=== PATIENT | female | born 1985 | race Caucasian/White ===

== ENCOUNTER 2020-10-07 19:15 | Inpatient (IN) | payer OTHER, SELFPAY ==
[2020-10-07 19:57] VITALS: BP 128/81; PULSE 93; RESP 18; TEMP 37.1; O2SAT 98; BMI 30.1
--- NOTE | 2020-10-07 20:01 | ED_ITS ---
HPI - Psych General Stated Complaint: si Time Seen by Provider: 10/07/20 19:45 Source: patient Mode of arrival: ambulatory Limitations: no limitations History of Present Illness HPI Narrative: 35-year-old female with a past medical history of depression, PTSD, anxiety, ADHD, personality disorder here with complaints of suicidal thoughts. No plan. No homicidal thoughts. No hallucinations. Feeling very anxious. Complaining of low back pain with some urinary foul odor. No flank pain, vomiting, fever. Related Data Home Medications Medication Instructions Recorded Confirmed Adderall 40 mg PO DAILY 10/07/20 10/07/20 clonidine 0.2 mg PO BEDTIME 10/07/20 10/07/20 doxepin BEDTIME 10/07/20 gabapentin 800 mg PO TID 10/07/20 10/07/20 lithium carbonate 850 mg PO BID 10/07/20 10/07/20 Allergies Allergy/AdvReac Type Severity Reaction Status Date / Time No Known Allergies Allergy Verified 10/07/20 20:14 Review of Systems Review of Systems: Yes all other systems are reviewed and are negative Constitutional: Constitutional: Reports no additional constitutional complaints, Denies body ache(s), Denies chills, Denies fever(s), Denies headache(s) and Denies weakness Eyes: Eyes: Reports no additional eye complaints and Denies change in vision ENT: Reports system reviewed and no additional complaints, except as documented, Denies dizziness, Denies headache(s), Denies nasal congestion, Denies nasal discharge and Denies neck pain Cardiovascular: Cardiovascular: Reports no additional cardiovascular complaints, Denies chest pain, Denies leg edema and Denies dyspnea Respiratory: Respiratory: Reports no additional respiratory complaints, Denies cough and Denies dyspnea Gastrointestinal: Gastrointestinal: Reports no additional gastrointestinal complaints, Denies abdominal pain, Denies diarrhea, Denies nausea and Denies vomiting Genitourinary: Genitourinary: Reports no additional female genitourinary complaints and Denies urinary incontinence Comments: foul odor urine Musculoskeletal: Musculoskeletal: Reports no additional musculoskeletal complaints, Reports back pain, Denies arthralgias, Denies joint swelling, Denies neck pain, Denies numbness and Denies tingling Integumentary/Breasts: Skin/Breast: Reports system reviewed and no additional complaints, except as docu and Denies rash Neurologic: Reports system reviewed and no additional complaints, except as documented, Denies Abnormal speech present, Denies dizziness, Denies headache(s), Denies numbness, Denies tingling and Denies weakness Psychiatric: Psychiatric: Reports anxiety, Reports depression, Denies homicidal ideation and Reports suicidal ideation [facility] Past Medical History Attestation statement: The following information was validated with the patient. Source: old records reviewed and nursing notes reviewed Medical History (Updated 10/07/20 @ 20:42 by She Brooks NP) ADHD Anxiety Depression Personality disorder PTSD (post-traumatic stress disorder) Social History Social History Patient : No Physical Exam Vital Signs: Vital Signs: Last Vital Signs Temp 98.8 F 10/07/20 19:57 Pulse 93 10/07/20 19:57 Resp 18 10/07/20 19:57 BP 128/81 10/07/20 19:57 Pulse Ox 98 10/07/20 19:57 Body Mass Index 30.1 Const: General: cooperative, healthy appearing, comfortable, no acute distress and anxious Orientation/consciousness: patient oriented x3 Limitations: no limitations HENMT: Head: Yes normal to inspection Ears: hearing grossly normal bilaterally General nose exam: Normal external nose present Face and sinus: Yes normal facial exam Mouth: Normal oral and palatal mucosa present Throat: Yes posterior oropharynx normal Eyes: General: appearance normal, both eyes and all related structures Pupils: Equal, round and reactive pupils present Neck: Neck: Yes normal visual inspection Chest: Chest palpation & inspection: normal inspection of the chest Resp: Effort & Inspection: normal respiratory effort Auscultation: clear to auscultation bilaterally Cardio: Rate: regular rate Rhythm: regular rhythm Peripheral pulses: Peripheral pulses 2+ throughout GI: Inspection: Yes normal to inspection Palpation (GI): Soft to palpation and nontender Auscultation: normal bowel sounds Back/Spine/Pelvis: Thoracic/Lumbar Spine: thoracic and lumbar spine normal to inspection Skin: General skin exam: no rashes or lesions noted Neuro: General: patient oriented x3, no focal motor deficits and normal sensation to monofilament Cranial nerves: Yes Equal, round and reactive pupils present Cognition (Neuro): normal cognition Speech: No Abnormal speech present Gait exam (Neuro): Normal gait present Motor exam (neuro): 5/5 motor strength present throughout Extrem: General: Yes normal to inspection Course Course Course Narrative: 35-year-old female here with suicidal thoughts, increasing anxiety. Will check labs, drug screen, COVID screen, have nursing verify home meds. Once medically cleared will need crisis evaluation 2100-patient has UTI. Started on antibiotics. Medications reconciled. Signed out to night team pending above MDM - Psych Medical Records Attestation: I reviewed the patient's medical records. Lab Data Attestation: I reviewed the patient's lab results. Labs: Lab Results 10/07/20 10/07/20 Range/Units 20:10 Unknown Urine Color YELLOW Urine Appearance HAZY Urine pH 6.0 (5.0-8.0) Ur Specific [place] 1.025 (1.005-1.025) Urine Protein NEG (NEG-TRACE) MG/DL Urine Glucose (UA) NEG (NEG) MG/DL Urine Ketones NEG (NEG) MG/DL Urine Blood TRACE (NEG) Urine Nitrite POS H (NEG) Ur Leukocyte Esterase 3+ H (NEG) Urine RBC 1-4 (0) /HPF Urine WBC 30-49 H (0-4) /HPF Ur Squamous Epith Cells 1+ /LPF Urine Bacteria 2+ /LPF Urine Mucus 1+ /LPF Urine Test NEGATIVE (NEGATIVE) Discharge Plan Discharge Clinical Impression: Depression, Suicidal ideation, UTI (urinary tract infection) Prescriptions: No Action gabapentin 800 mg PO TID RF: 0 lithium carbonate 850 mg PO BID RF: 0 clonidine 0.2 mg PO BEDTIME RF: 0 doxepin BEDTIME RF: 0 Adderall 40 mg PO DAILY RF: 0
[2020-10-07 20:17] LABS: Glucose Urine UA NEG (NEG); Leukocyte Esterase Urine 3+ (NEG); Nitrite Urine POS (NEG); Specific Gravity - Urine 1.025 (1.005-1.025); UACC Culture Trigger YES; Urine Blood TRACE (NEG); Urine Ketones NEG (NEG); Urine Protein NEG (NEG-TRACE)
[2020-10-07 20:18] LABS: Appearance Urine HAZY; Color Urine YELLOW
[2020-10-07 20:21] LABS: UPreg QC Valid YES; Urine Pregnancy NEGATIVE (NEGATIVE)
[2020-10-07 20:23] LABS: Bacteria Urine 2+ /LPF; Mucus Urine 1+ /LPF; Squamous Epithelial Cell Urine 1+ /LPF; WBC Urine 30-49 /HPF (0-4)
[2020-10-07] MEDS: Nicotine 21 MG PATCH.TD24 TRANSDERMA (20:45)
[2020-10-07] MEDS: clonazePAM 1 MG TABLET PO (20:46)
[2020-10-07] MEDS: Nitrofurantoin Monohyd/M-Cryst 100 MG CAPSULE PO (20:46)
[2020-10-07 20:50] LABS: Amphetamine Screen Urine POSITIVE (Not Detect); Barbiturates, Urine Not Detected (Not Detect); Benzodiazepines Screen Urine Not Detected (Not Detect); Cannabinoid Screen Urine Not Detected (Not Detect); Cocaine Screen Urine Not Detected (Not Detect); Opiate Screen Urine Not Detected (Not Detect); Phencyclidine Screen Urine Not Detected (Not Detect)
[2020-10-07 21:02] LABS: MANUAL DIFF FLAG NO
[2020-10-07 21:03] LABS: Basophils Percent Auto 0.4 % (0-2); Eosinophils Absolute Auto 0.3 X10*3/uL (0.0-0.4); Eosinophils Percent Auto 4.5 % (0-4); Hematocrit 34.9 % (37-47); Hemoglobin 11.7 g/dl (12.0-16.0); Imm Gran Abs Auto 0.04 X10*3/uL (0.00-0.03); Imm Gran Pct Auto 0.6 % (0.0-0.4); Lymphocytes Percent Auto 41.9 % (20-40); Mean Corpuscular HGB Conc 33.5 g/dl (31.0-35.0); Mean Corpuscular Hemoglobin 29.4 pg (27.0-33.0); Mean Corpuscular Volume 87.7 fL (80-98); Mean Platelet Volume 9.8 fL (9.4-12.3); Monocytes Absolute Auto 0.6 X10*3/uL (0.1-1.2); Monocytes Percent Auto 7.9 % (2-11); Neutrophils Absolute Auto 3.2 X10*3/uL (2.0-8.3); Neutrophils Percent Auto 44.7 % (45-73); Platelet Count 298 X10*3/uL (160-400); Red Blood Count 3.98 X10*6/uL (4.20-5.50); Red Cell Distribution Width 13.2 % (11.0-16.0); White Blood Count 7.1 X10*3/uL (4.8-10.8)
[2020-10-07 21:04] LABS: Influenza A PCR NEGATIVE (Negative); Influenza B PCR NEGATIVE (Negative); Resp Syncy Virus RNA Qual PCR NEGATIVE (Negative); SARS COV2 PCR INHOUSE NEGATIVE (Negative)
[2020-10-07 21:34] LABS: Ethanol < 10 mg/dL
[2020-10-07 21:37] LABS: Lithium < 0.10 mmol/L (0.60-1.20)
[2020-10-07 21:39] LABS: Alanine Aminotransferase 12 U/L (0-31); Albumin Level 3.9 g/dL (3.5-5.0); Alkaline Phosphatase 99 U/L (39-117); Anion Gap 13 (12-20); Aspartate Amino Transferase 12 U/L (5-31); Bilirubin Direct < 0.2 mg/dL (0.0-0.5); Bilirubin Total < 0.2 mg/dL (0.0-1.0); Blood Urea Nitrogen 7 mg/dL (9-16); Calcium 9.2 mg/dL (8.4-10.2); Carbon Dioxide 26 mmol/L (22-29); Chloride 106 mmol/L (96-108); Creatinine Clr Calc Pharmacy 94.6; Estimated Glomerular Filt Rate > 60; Glucose Random 102 mg/dL (60-115); Salicylate < 5.0 mg/dL (15-30); Sodium 141 mmol/L (135-145); Total Protein 6.6 g/dL (6.5-8.0)
[2020-10-07] MEDS: Gabapentin 400 MG CAPSULE 800 MG PO (21:41)
[2020-10-07 21:44] LABS: Acetaminophen LAB < 1 mcg/mL (<30)
[2020-10-07 22:01] VITALS: BP 124/78; PULSE 78; RESP 16; TEMP 36.5; O2SAT 98
--- NOTE | 2020-10-07 22:44 | PC.NURSE ---
waiting for lithium to be delivered by pharmacy, pyx out.
[2020-10-07] MEDS: Lithium Carbonate 300 MG TABLET 750 MG PO (23:21)
[2020-10-08] VITALS (7 sets, daily range): BP systolic 125–133; BP diastolic 66–83; PULSE 79–95; RESP 15–16; O2SAT 97–98
[2020-10-08] MEDS: hydrOXYzine HCL 50 MG TABLET PO (05:54)
--- NOTE | 2020-10-08 06:34 | PC.NURSE ---
PT SLEEPING MEDICATION EFFECTIVE FOR THE PT. PT WAITING TO BE SEEN BY [facility]. LOCKE PRESENT.
[2020-10-08] MEDS: Gabapentin 400 MG CAPSULE 800 MG PO ×3 (08:34→22:43)
[2020-10-08] MEDS: Nitrofurantoin Monohyd/M-Cryst 100 MG CAPSULE PO ×2 (08:34→22:43)
[2020-10-08] MEDS: clonazePAM 1 MG TABLET 2 MG PO ×2 (08:34→22:44)
--- NOTE | 2020-10-08 08:37 | PC.NURSE ---
[facility] sent to [facility]
--- NOTE | 2020-10-08 08:38 | PC.NURSE ---
Pharmacy called for medications not loaded in pxysis
[2020-10-08] MEDS: LORazepam 1 MG TABLET 2 MG PO ×2 (10:31→17:20)
[2020-10-08] MEDS: Lithium Carbonate 300 MG TABLET 750 MG PO ×2 (10:31→22:48)
[2020-10-08] MEDS: Nicotine 21 MG PATCH.TD24 TRANSDERMA (11:39)
[2020-10-08] MEDS: ALPRAZolam 0.5 MG TABLET PO (19:19)
[2020-10-08] MEDS: cloNIDine HCL 0.2 MG TABLET PO (22:43)
[2020-10-08] MEDS: Doxepin HCl 25 MG CAPSULE 150 MG PO (22:48)
[2020-10-08] MEDS: OLANZapine 10 MG VIAL IM (23:36)
--- NOTE | 2020-10-08 23:43 | PC.NURSE ---
Patient was found yelling and screaming, demanding more medication, refused to hand it over the hoody, patient was redirected/educated with POD policy eventually agreed and gave us her hoody, patient's behavior had been psychotically escalating, attempted to cut her wrist with pencil, items removed from the room, provider notified/ordered Olanzapine 10 mg IM, administered as ordered/patient compliant, patient is currently being observed on 1:1 for safety. will continue to monitor.
[2020-10-09] VITALS: RESP 14
[2020-10-09 00:15] VITALS: RESP 13
[2020-10-09 00:30] VITALS: RESP 14
--- NOTE | 2020-10-09 06:45 | PC.NURSE ---
Patient is s/p chemical restraint for the escalating behavior @ 2330, patient slept through the night, OOR x 2 for bathroom use and for snack, patient seems to be present medication seeking behavior, patient currently sleeping, no distress observed/reported, disposition is section 12 bed search, patient is positive for UTI being treated with Macrobid, will continue to monitor.
--- NOTE | 2020-10-09 07:10 | PC.NURSE ---
patient appeared to remain at rest upon begin of shift and now awake, asking for many food items, extra oatmeal
[2020-10-09] MEDS: Nicotine 21 MG PATCH.TD24 TRANSDERMA (08:22)
[2020-10-09] MEDS: Gabapentin 400 MG CAPSULE 800 MG PO (08:23)
[2020-10-09] MEDS: Nitrofurantoin Monohyd/M-Cryst 100 MG CAPSULE PO ×2 (08:23→22:00)
[2020-10-09] MEDS: clonazePAM 1 MG TABLET 2 MG PO (08:23)
[2020-10-09] MEDS: Lithium Carbonate 300 MG TABLET 750 MG PO ×2 (08:24→22:00)
--- NOTE | 2020-10-09 08:41 | PC.NURSE ---
made third attempt to verify last dose for MMTP, left voice mail
[2020-10-09 08:45] VITALS: BP 108/64; PULSE 88; RESP 14; TEMP 36.8; O2SAT 97
--- NOTE | 2020-10-09 08:49 | HE.PHANOTE ---
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
[2020-10-09] MEDS: LORazepam 1 MG TABLET 2 MG PO ×3 (09:14→14:02)
--- NOTE | 2020-10-09 09:15 | PC.NURSE ---
patient escalating slamming door disruptive to unit, expresses displeasure about rules of unit demanding personal items from closet
--- NOTE | 2020-10-09 09:22 | PC.NURSE ---
5th call to verify methadone dose. patient has stopped acting out for the moment.
[2020-10-09] MEDS: OLANZapine 10 MG TABLET PO ×2 (09:29→22:00)
[2020-10-09] MEDS: HaloperidoL 5 MG TABLET PO (12:53)
--- NOTE | 2020-10-09 18:18 | PC.NURSE ---
client had been restrained today and therefore will not be accepted by [facility] today-will reassess tomrrow. notified jenn and angella iglesias
[2020-10-09] MEDS: Doxepin HCl 25 MG CAPSULE 150 MG PO (23:45)
[2020-10-10] MEDS: Nicotine 21 MG PATCH.TD24 TRANSDERMA (05:04)
[2020-10-10 05:05] VITALS: BP 105/76; PULSE 97; RESP 16; TEMP 36.6; O2SAT 96
--- NOTE | 2020-10-10 05:29 | PC.NURSE ---
Patient slept through the night, no distress observed/reported, out of room x 3 for bathroom use and back, patient did exhibit release behavior at 0515, demanding immediate discharge, provider notified/ordered Olanzapine 10 mg because PRN order is to soon to administer, however, went back to bed soon, therefore Olanzapine was not administered, VSS, appetite good, medication compliant, disposition continues to be same, section 12 inpatient bed search, will continue to monitor.
--- NOTE | 2020-10-10 07:33 | PC.NURSE ---
patient appears to remain at rest this am respirations are even and unlabored, patient appears in no distress.
[2020-10-10] MEDS: Gabapentin 400 MG CAPSULE 800 MG PO ×3 (08:16→20:52)
[2020-10-10] MEDS: OLANZapine 10 MG TABLET PO (08:16)
[2020-10-10] MEDS: clonazePAM 1 MG TABLET 2 MG PO (08:16)
[2020-10-10] MEDS: Lithium Carbonate 300 MG TABLET 750 MG PO ×2 (08:17→21:11)
[2020-10-10] MEDS: Nitrofurantoin Monohyd/M-Cryst 100 MG CAPSULE PO ×2 (08:17→21:12)
[2020-10-10] MEDS: LORazepam 1 MG TABLET 2 MG PO (10:04)
--- NOTE | 2020-10-10 10:39 | PC.NURSE ---
verified methadone with [facility] that [facility] last dose was 135mg [facility] bottle ([facility]) her extension 136 [phone]
[2020-10-10] MEDS: Haloperidol Lactate 5 MG/ML VIAL IM (11:31)
[2020-10-10] MEDS: LORazepam 2 MG/ML VIAL IM (11:31)
[2020-10-10 18:00] VITALS: BP 106/69; PULSE 88; RESP 18; TEMP 36.7; O2SAT 94
[2020-10-10 20:51] VITALS: BP 118/78; PULSE 98
[2020-10-10] MEDS: Doxepin HCl 25 MG CAPSULE 150 MG PO (21:10)
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
[2020-10-11 06:00] VITALS: PULSE 79; RESP 18; TEMP 35.7; O2SAT 97
[2020-10-11 08:22] LABS: MANUAL DIFF FLAG NO
[2020-10-11] MEDS: Lithium Carbonate 300 MG TABLET 750 MG PO ×2 (08:36→20:25)
[2020-10-11] MEDS: clonazePAM 1 MG TABLET 2 MG PO ×2 (08:37→20:24)
[2020-10-11] MEDS: Nitrofurantoin Monohyd/M-Cryst 100 MG CAPSULE PO ×2 (08:37→20:24)
[2020-10-11 08:40] LABS: Basophils Percent Auto 0.4 % (0-2); Eosinophils Absolute Auto 0.4 X10*3/uL (0.0-0.4); Eosinophils Percent Auto 3.5 % (0-4); Hematocrit 39.3 % (37-47); Imm Gran Abs Auto 0.07 X10*3/uL (0.00-0.03); Imm Gran Pct Auto 0.7 % (0.0-0.4); Lymphocytes Absolute Auto 2.2 X10*3/uL (1.2-4.9); Lymphocytes Percent Auto 21.4 % (20-40); Mean Corpuscular HGB Conc 33.1 g/dl (31.0-35.0); Mean Corpuscular Hemoglobin 28.8 pg (27.0-33.0); Mean Corpuscular Volume 87.1 fL (80-98); Mean Platelet Volume 9.6 fL (9.4-12.3); Monocytes Absolute Auto 0.8 X10*3/uL (0.1-1.2); Monocytes Percent Auto 7.2 % (2-11); Neutrophils Percent Auto 66.8 % (45-73); Platelet Count 330 X10*3/uL (160-400); Red Blood Count 4.51 X10*6/uL (4.20-5.50); Red Cell Distribution Width 12.7 % (11.0-16.0); White Blood Count 10.4 X10*3/uL (4.8-10.8)
[2020-10-11 09:09] LABS: Alanine Aminotransferase 80 U/L (0-31); Albumin Level 4.5 g/dL (3.5-5.0); Alkaline Phosphatase 109 U/L (39-117); Anion Gap 13 (12-20); Aspartate Amino Transferase 80 U/L (5-31); Bilirubin Direct < 0.2 mg/dL (0.0-0.5); Bilirubin Total 0.4 mg/dL (0.0-1.0); Blood Urea Nitrogen 10 mg/dL (9-16); Calcium 9.9 mg/dL (8.4-10.2); Carbon Dioxide 26 mmol/L (22-29); Chloride 104 mmol/L (96-108); Creatinine Clr Calc Pharmacy 97.1; Estimated Glomerular Filt Rate > 60; Glucose Fasting 114 mg/dL (60-99); Potassium 4.4 mmol/L (3.3-5.1); Sodium 139 mmol/L (135-145); Total Protein 7.4 g/dL (6.5-8.0)
[2020-10-11] MEDS: Gabapentin 400 MG CAPSULE 800 MG PO ×2 (15:18→20:24)
[2020-10-11] MEDS: OLANZapine 10 MG TABLET PO (16:32)
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
[2020-10-11 17:17] VITALS: BP 136/87; PULSE 109; RESP 18; TEMP 36.3; O2SAT 97
[2020-10-11] MEDS: Nicotine 21 MG PATCH.TD24 TRANSDERMA (18:05)
[2020-10-11 20:24] VITALS: BP 137/84; PULSE 97
[2020-10-11] MEDS: Doxepin HCl 25 MG CAPSULE 150 MG PO (20:24)
[2020-10-11] MEDS: cloNIDine HCL 0.2 MG TABLET PO (20:24)
[2020-10-12 06:00] VITALS: BP 116/78; PULSE 88; RESP 14; TEMP 36.7; O2SAT 96
[2020-10-12 08:36] LABS: Estimated Average Glucose 100 mg/dL; Hemoglobin A1c % 5.1 %
[2020-10-12 08:58] LABS: Cholesterol 182 mg/dL; HDL Cholesterol 31 mg/dL; LDL Cholesterol Calculated 74 mg/dl; Triglycerides 389 mg/dL
[2020-10-12 09:19] LABS: Thyroid Stimulating Hormone 2.67 uIU/mL (0.32-4.0)
[2020-10-12] MEDS: clonazePAM 1 MG TABLET 2 MG PO (09:24)
[2020-10-12] MEDS: Gabapentin 400 MG CAPSULE 800 MG PO ×2 (09:24→14:58)
[2020-10-12] MEDS: Lithium Carbonate 300 MG TABLET 750 MG PO (09:26)
[2020-10-12] MEDS: Nitrofurantoin Monohyd/M-Cryst 100 MG CAPSULE PO (09:31)
--- NOTE | 2020-10-12 10:00 | ECG_ITS ---
Test Reason : STIMULANT USE Blood Pressure : / mmHG Vent. Rate : 089 BPM Atrial Rate : 089 BPM P-R Int : 194 ms QRS Dur : 086 ms QT Int : 346 ms P-R-T Axes : 048 023 042 degrees QTc Int : 420 ms Normal sinus rhythm Nonspecific T wave abnormality Abnormal ECG No previous ECGs available Referred By: Elmira Lozada Electronically Signed By:SUMAYA AGUIRRE MD
--- NOTE | 2020-10-12 13:17 | P.CONIM_ITS ---
History of Present Illness Data of Consult Service Date: 10/12/20 <Yuli Bledsoe NP - Last Filed: 10/12/20 14:02> Requesting physician: Elmira Lozada <Yuli Bledsoe NP - Last Filed: 10/12/20 14:02> Primary Care Provider: None Physician <Yuli Bledsoe NP - Last Filed: 10/12/20 14:02> HPI Reason for consult: medical consultation <Yuli Bledsoe NP - Last Filed: 10/12/20 14:02> 35-year-old woman with history of bipolar disorder, depression, recent urinary tract infection admitted to [facility]. Patient has no complaints of chest pain, shortness of breath, nausea, vomiting, diarrhea, urinary urgency frequency or dysuria. She has no acute medical complaints at this time her vital signs are stable, recent labs within acceptable limits. <Yuli Bledsoe NP - Last Filed: 10/12/20 14:02> Review of Systems Review of Systems: Denies any recent fever chills or decrease in appetite respiratory denies any shortness of breath coverage production cardiovascular denies chest pain gastrointestinal denies any dysphagia abdominal pain nausea vomiting or diarrhea genitourinary denies any dysuria frequency or hematuria musculoskeletal denies any joint pain or swelling neuropsych denies any weakness or seizures all other systems reviewed are negative <Yuli Bledsoe NP - Last Filed: 10/12/20 14:02> [facility] Medical History: Medical History ADHD Anxiety Bipolar I disorder Depression Hepatitis C Opioid use disorder, moderate, on maintenance therapy, dependence Personality disorder PTSD (post-traumatic stress disorder) <Yuli Bledsoe NP - Last Filed: 10/12/20 14:02> Pertinent family history: no cardiac disease <Yuli Bledsoe NP - Last Filed: 10/12/20 14:02> Social History: Social History Household Members: None Housing: Apartment Do you presently have visiting nurse or other home services: No Unable to assess alcohol history related to: Unknown Patient Tobacco Use Status: Current everyday Tobacco user Tobacco use type: Cigarette Cigarette Packs Per Day: 0.25 Cigarettes Per Day: 5.0 Smoked in Last 30 Days: Yes e-Cigarette/Vaping Use: Never Used Patient Interested in Nicotine Replacement: No Patient Given Instructions on How to Stop Smoking: Yes Date Education Initiated: 10/20/20 Second Hand Smoke Exposure: Yes Use of substances other than those prescribed or required for medical reasons: Yes Substance Use Type: Crack/Cocaine and Marijuana Substance Use Frequency: Chronic Longstanding Currently Displaying Signs/Symptoms of Drug Intoxication Withdrawal: No Have you been hit, kicked, punched, or otherwise hurt by someone within the past year? If so, by whom?: No Do you feel safe in your current relationship?: No Current Relationship Is there a partner from a previous relationship who is making you feel unsafe now?: No Are you made to feel afraid or neglected: No Advance Directives: No Advance Directives Information Provided: Yes Advance Directives on File: No Do you have thoughts of harming others: None Do you have a plan to hurt others: No Plan Recently lost weight without trying: Unsure How much weight loss: Unsure Eating poorly because of decreased appetite: No Nutrition screen score: 4 Nutrition Risks: No Nutritional Risk Patient : No : No Poor oral hygiene: No service: No Current occupational status: disabled Sexual orientation: Decline to Answer <Yuli Bledsoe NP - Last Filed: 10/12/20 14:02> Meds Allergies/Adverse reactions: Allergies Allergy/AdvReac Type Severity Reaction Status Date / Time No Known Allergies Allergy Verified 10/07/20 20:14 <Yuli Bledsoe NP - Last Filed: 10/12/20 14:02> Active Medications: Current Medications Generic Name Dose Route Start Last Admin Trade Name Justin PRN Reason Stop Dose Admin Acetaminophen 650 mg 10/10/20 17:57 Acetaminophen 325 Mg Tablet PO Q6H PRN Headache/Pain Mild Scale (1-3) Al Hydroxide/Mg Hydroxide 30 ml 10/10/20 17:57 Magnesium Hydrox/Alum Hydrox 30 Ml Oral.Susp PO Q6H PRN Heartburn/Nausea Amphetamine/Dextroamphetamine 10 mg 10/08/20 09:59 10/12/20 09:31 Dextroamphetami/Amphetamine Xr 10 Mg Cap.Er.24h PO 10 mg DAILY BARAK Administration Clonazepam 2 mg 10/08/20 09:00 10/12/20 09:24 Clonazepam 1 Mg Tablet PO 2 mg BID BARAK Administration Clonidine HCl 0.2 mg 10/08/20 21:00 10/11/20 20:24 Clonidine Hcl 0.2 Mg Tablet PO 0.2 mg BEDTIME BARAK Administration Doxepin HCl 150 mg 10/08/20 21:00 10/11/20 20:24 Doxepin Hcl 25 Mg Capsule PO 150 mg BEDTIME BARAK Administration Gabapentin 800 mg 10/07/20 21:30 10/12/20 09:24 Gabapentin 400 Mg Capsule PO 800 mg TID BARAK Administration Hydroxyzine HCl 25 mg 10/10/20 17:57 Hydroxyzine Hcl 25 Mg Tablet PO BEDTIME PRN Anxiety [place] Carbonate 600 mg 10/12/20 21:00 [place] Carbonate 300 Mg Tablet PO BID BARAK Magnesium Hydroxide 30 ml 10/10/20 17:57 Milk Of Magnesia 30 Ml Oral.Susp PO DAILY PRN Constipation Methadone HCl 130 mg 10/11/20 09:00 10/12/20 09:22 Methadone Hcl 1 Mg/0.1 Ml Oral.Conc PO 130 mg DAILY BARAK Administration Multivitamins 1 tab 10/13/20 09:00 B-Complex With Vitamin C Tablet PO DAILY BARAK Multivitamins/Vitamin C 1 tab 10/13/20 09:00 Multivitamin Tablet PO DAILY BARAK Nicotine 21 mg 10/08/20 11:33 10/11/20 18:05 Nicotine 21 Mg Patch.Td24 TRANSDERMA 21 mg DAILY PRN Administration Smoking cessation Nicotine Polacrilex 4 mg 10/11/20 16:57 Nicotine Polacrilex 2 Mg Gum BUCCAL Q1H PRN Nicotine Cravings Olanzapine 10 mg 10/09/20 09:19 10/11/20 16:32 Olanzapine 10 Mg Tablet PO 10 mg BID PRN Administration anxiety Pharmacy Consult 1 each 10/07/20 19:45 Consult Rx Perform Med Rec MISCELLANE ONCE PRN Consult order Trazodone HCl 50 mg 10/10/20 17:57 Trazodone Hcl 50 Mg Tablet PO BEDTIME PRN Insomnia Vitamin D 10 mcg 10/13/20 09:00 Cholecalciferol (Vitamin D3) 10 Mcg Tablet PO DAILY [facility] <Yuli Bledsoe NP - Last Filed: 10/12/20 14:02> Physical Exam Vital Signs and Narrative: Vital Signs: Last Vital Signs Temp 98.0 F 10/12/20 06:00 Pulse 88 10/12/20 06:00 Resp 14 10/12/20 06:00 BP 116/78 08/12/21 06:00 Pulse Ox 96 10/12/20 06:00 Body Mass Index 30.1 <Yuli Bledsoe NP - Last Filed: 10/12/20 14:02> Appearing in no acute distress head is normocephalic atraumatic eyes pupils are PERRLA sclera is anicteric mouth throat mucous membranes are intact and moist neck is supple no lymphadenopathy, no JVD noted lung sounds are clear to auscultation heart regular rate rhythm, clear S1, S2 positive bowel sounds, abdomen is soft, nontender neuro patient is alert x3, no focal deficits Cranial nerves 2-12 are grosslyintact without focal deficits <Yuli Bledsoe NP - Last Filed: 10/12/20 14:02> Results Labs CBC and Chem 7: : 10/19/20 19:16 10/19/20 16:19 <Yuli Bledsoe NP - Last Filed: 10/12/20 14:02> Labs: Laboratory Results - last 24 hr 10/12/20 10/12/20 08:12 08:12 Estimat Average Glucose 100 Hemoglobin A1c % 5.1 Triglycerides 389 Cholesterol 182 LDL Cholesterol, Calc 74 HDL Cholesterol 31 TSH 2.67 <Yuli Bledsoe NP - Last Filed: 10/12/20 14:02> Assessment and Plan (1) UTI (urinary tract infection): Status: Resolved <Yuli Bledsoe NP - Last Filed: 10/12/20 14:02> 35 year old women admitted to for behavioral health UTI. Ecoli on urine cx treated with macrobid for 10 doses no further symptoms Treatment complete Mental health management as per psychiatric team Attending Dr. Grier <Yuli Bledsoe NP - Last Filed: 10/12/20 14:02>
[2020-10-12] MEDS: gemfibroziL 600 MG TABLET PO (16:50)
--- NOTE | 2020-10-12 17:07 | HO.PSYCHPN ---
Subjective Subjective Date of Service: 10/12/20 Reason For Visit: Depression, SI, Lability of Mood Subjective Notes: Conditional Voluntary Healthcare Proxy: No Guardianship: No Medical Problems Affecting Mental Status: No Interim History: Pt continues to present with oversedation, breakthrough anger and lability. This did not improve as the day progressed. Pt today was able to meet, however with significant lethargy which as above did not clear as the day progressed. Message left with [employer] [phone] to discuss Methadone dosing and current presentation.Discussed with pt her request to begin a vitamin regime-initiated MVI, B Complex and Vitamin D along with Ensure. Gemfibrozil initiated to respond to high triglyceride levels indicated on lab values. Medications decreased/held until pt is less sedate including -Klonopin 2 mg bid-hold evening dose- decrease to 1 mg bid -Doxepin 150 mg to be held tonight -[place] 750 bid to decrease to 600 mg bid -Gabapentin 800 mg tid to decrease to 400 mg tid -Trazodone to be held tonight Labs essentially WNL with AST 80 and ALT 80. Will get repeat values on 10/13. Zyprexa prn ordered for breakthrough agitation/psychosis/violence Medication Compliance: Yes Side effects from medications: Yes (sedation) Attending Groups: No Review of Systems Acute medical concerns: No Medical Review of Systems: unchanged Review of Systems: Repeat diagnostics for 10/13/20. Review of Systems Review of Systems Yes Unobtainable due to mental status Constitutional: Reports daytime sleepiness, Reports fatigue, Reports lethargy, Reports malaise and Reports weakness Reports behavioral changes, Reports confusion and Reports weakness Psychiatric: Reports behavioral changes, Reports confusion, Reports difficulty concentrating, Reports mood swings and Reports suicidal ideation Endocrine: Reports fatigue Mental Status Exam Mental Status Exam Patient Appearance: Fatigued, Disheveled and Unkempt Patient Orientation: Person Level of Consciousness: Drowsy, Sedated, Obtunded and Lethargic Patient Behavior: Talkative, Aggressive, Belligerent, Sedated, Fatigued, Distractible, Confused, Impulsive and Poor Eye Contact Mood Description: Hostile, Cheerful, Labile, Angry and Apprehensive Affect Description: Labile Patient Cognition Impaired: Yes Ability to Follow Directions: Fair Speech Pattern: Slurred, Impoverished, Difficulty Finding Words, Garbled, Spontaneous Speech, Rambling, Mumbled, Cofabulation, Loud, Delayed, Includes Profanity, Poor Articulation and Long Pauses Memory Description: Remote Impaired, Immediate Impaired and Episodic Impaired Hallucinations: None Delusions: Not Present Thought Process: Disoriented, Incoherent, Illogical, Distracted, Evasive, Slowed Thinking and Confusion Thought Content: positive for Disoriented, positive for [place], positive for Poverty of Content, positive for Loose Associations, positive for Incoherent, positive for Slowed Thinking, positive for Tangential, positive for Disorganized and positive for Suicidal Ideation Depressive Symptoms: Diff. Making Decisions, Increased Irritability, Sleeping More Than Usual, Increased Fatigue, Thoughts of /Suicide, Loss of Energy and Difficulty Concentrating Abnormal Motor Activity Signs and Symptoms: Agitation and Restlessness Judgement: Poor Diagnostics Vital Signs (24Hr): Vital Signs - 24 hr 10/11/20 17:17 10/11/20 20:24 10/12/20 06:00 Temperature 97.4 F 98.0 F Pulse Rate 109 H 97 88 Respiratory Rate 18 14 Blood Pressure 136/87 137/84 116/78 Pulse Oximetry 97 96 Body Mass Index 30.1 Labs Results: 10/11/20 07:56 10/11/20 07:55 Labs: Laboratory Results - last 48 hr 10/11/20 10/11/20 10/12/20 07:55 07:56 08:12 WBC 10.4 RBC 4.51 Hgb 13.0 Hct 39.3 MCV 87.1 MCH 28.8 MCHC 33.1 RDW 12.7 Plt Count 330 MPV 9.6 Immature Gran % (Auto) 0.7 H Neut % (Auto) 66.8 Lymph % (Auto) 21.4 [place] % (Auto) 7.2 Eos % (Auto) 3.5 Baso % (Auto) 0.4 Lymph # (Auto) 2.2 [place] # (Auto) 0.8 Eos # (Auto) 0.4 Baso # (Auto) 0.0 Abs Immat Gran (auto) 0.07 H Absolute Neuts (auto) 7.0 Absolute Nucleated RBC 0.000 Nucleated RBC % (auto) 0.0 Sodium 139 Potassium 4.4 Chloride 104 Carbon Dioxide 26 Anion Gap 13 BUN 10 Creatinine 0.78 Estim Creat Clear Calc 97.1 Estimated GFR > 60 Fasting Glucose 114 H Estimat Average Glucose 100 Hemoglobin A1c % 5.1 Calcium 9.9 D Total Bilirubin 0.4 Direct Bilirubin < 0.2 AST 80 H ALT 80 H Alkaline Phosphatase 109 Total Protein 7.4 Albumin 4.5 Triglycerides Cholesterol LDL Cholesterol, Calc HDL Cholesterol TSH 10/12/20 08:12 WBC RBC Hgb Hct MCV MCH MCHC RDW Plt Count MPV Immature Gran % (Auto) Neut % (Auto) Lymph % (Auto) [place] % (Auto) Eos % (Auto) Baso % (Auto) Lymph # (Auto) [place] # (Auto) Eos # (Auto) Baso # (Auto) Abs Immat Gran (auto) Absolute Neuts (auto) Absolute Nucleated RBC Nucleated RBC % (auto) Sodium Potassium Chloride Carbon Dioxide Anion Gap BUN Creatinine Estim Creat Clear Calc Estimated GFR Fasting Glucose Estimat Average Glucose Hemoglobin A1c % Calcium Total Bilirubin Direct Bilirubin AST ALT Alkaline Phosphatase Total Protein Albumin Triglycerides 389 Cholesterol 182 LDL Cholesterol, Calc 74 HDL Cholesterol 31 TSH 2.67 Medications Medications Current Medications Generic Name Dose Route Start Last Admin Trade Name Freq PRN Reason Stop Dose Admin Acetaminophen 650 mg 10/10/20 17:57 Acetaminophen 325 Mg Tablet PO Q6H PRN Headache/Pain Mild Scale (1-3) Al Hydroxide/Mg Hydroxide 30 ml 10/10/20 17:57 Magnesium Hydrox/Alum Hydrox 30 Ml Oral.Susp PO Q6H PRN Heartburn/Nausea Amphetamine/Dextroamphetamine 10 mg 10/08/20 09:59 10/12/20 09:31 Dextroamphetami/Amphetamine Xr 10 Mg Cap.Er.24h PO 10 mg DAILY BARAK Administration Clonazepam 2 mg 10/08/20 09:00 10/12/20 09:24 Clonazepam 1 Mg Tablet PO 2 mg BID BARAK Administration Clonidine HCl 0.2 mg 10/08/20 21:00 10/11/20 20:24 Clonidine Hcl 0.2 Mg Tablet PO 0.2 mg BEDTIME BARAK Administration Doxepin HCl 150 mg 10/08/20 21:00 10/11/20 20:24 Doxepin Hcl 25 Mg Capsule PO 150 mg BEDTIME BARAK Administration Gabapentin 400 mg 10/12/20 21:00 Gabapentin 400 Mg Capsule PO TID BARAK Gemfibrozil 600 mg 10/12/20 16:30 10/12/20 16:50 Gemfibrozil 600 Mg Tablet PO 600 mg BIDAC BARAK Administration Hydroxyzine HCl 25 mg 10/10/20 17:57 Hydroxyzine Hcl 25 Mg Tablet PO BEDTIME PRN Anxiety [place] Carbonate 600 mg 10/12/20 21:00 [place] Carbonate 300 Mg Tablet PO BID BARAK Magnesium Hydroxide 30 ml 10/10/20 17:57 Milk Of Magnesia 30 Ml Oral.Susp PO DAILY PRN Constipation Methadone HCl 130 mg 10/11/20 09:00 10/12/20 09:22 Methadone Hcl 1 Mg/0.1 Ml Oral.Conc PO 130 mg DAILY BARAK Administration Multivitamins 1 tab 10/13/20 09:00 B-Complex With Vitamin C Tablet PO DAILY BARAK Multivitamins/Vitamin C 1 tab 10/13/20 09:00 Multivitamin Tablet PO DAILY BARAK Nicotine 21 mg 10/08/20 11:33 10/11/20 18:05 Nicotine 21 Mg Patch.Td24 TRANSDERMA 21 mg DAILY PRN Administration Smoking cessation Nicotine Polacrilex 4 mg 10/11/20 16:57 Nicotine Polacrilex 2 Mg Gum BUCCAL Q1H PRN Nicotine Cravings Olanzapine 10 mg 10/09/20 09:19 10/11/20 16:32 Olanzapine 10 Mg Tablet PO 10 mg BID PRN Administration anxiety Pharmacy Consult 1 each 10/07/20 19:45 Consult Rx Perform Med Rec MISCELLANE ONCE PRN Consult order Trazodone HCl 50 mg 10/10/20 17:57 Trazodone Hcl 50 Mg Tablet PO BEDTIME PRN Insomnia Vitamin D 10 mcg 10/13/20 09:00 Cholecalciferol (Vitamin D3) 10 Mcg Tablet PO DAILY [facility] Allergies Allergies Allergy/AdvReac Type Severity Reaction Status Date / Time No Known Allergies Allergy Verified 10/07/20 20:14 Assessment & Plan Assessment & Plan (1) Bipolar I disorder: Status: Acute Code(s): F31.9 - Bipolar disorder, unspecified Assessment and Plan: Pt continues to present with oversedation and breakthrough lability. Plan: Hold Klonopin tonight. Decrease to 1 mg bid on 10/13 (decreasing dosage by 50%) Hold Doxepin tonight. MVI, B Complex, Vit D, Ensure ordered as discussed with pt-she is concerned about her general health habits Gembirozil initiated for elevated triglycerides Decrease [place] to 600 mg bid from 750 mg bid Decrease Gabapentin from 800 mg tid to 400 mg tid Hold Trazodone tonight Repeat labs 10/13- [place], CMP, CBCD Message left with [facility] [employer] to discuss Methadone dosing and current symptoms (2) PTSD (post-traumatic stress disorder): Status: Acute Code(s): F43.10 - Post-traumatic stress disorder, unspecified (3) Opioid use disorder, moderate, on maintenance therapy, dependence: Status: Acute Code(s): F11.20 - Opioid dependence, uncomplicated Greater than 50% of the session was spent on counseling and/or coordination of care Patient educated on: medication risk/benefits Informed Consent: does not understand and further education needed Reason for contiued inpatient stay Substantial Risk for: harm to self, harm to others, inability to function and rapid decompensation
[2020-10-12] MEDS: Milk of Magnesia 30 ML ORAL.SUSP PO (17:52)
[2020-10-12 18:25] VITALS: BP 136/82; PULSE 96; TEMP 36.1
[2020-10-12 20:44] VITALS: BP 132/89; PULSE 101
[2020-10-12] MEDS: Lithium Carbonate 300 MG TABLET 600 MG PO (20:44)
[2020-10-12] MEDS: Gabapentin 400 MG CAPSULE PO (20:44)
[2020-10-12] MEDS: cloNIDine HCL 0.2 MG TABLET PO (20:44)
[2020-10-12] MEDS: Nicotine Polacrilex 2 MG GUM 4 MG BUCCAL ×2 (20:48→21:17)
[2020-10-12 21:17] LABS: UPreg QC Valid YES; Urine Pregnancy NEGATIVE (NEGATIVE)
[2020-10-13] MEDS: Cholecalciferol (Vitamin D3) 10 MCG TABLET PO (08:22)
[2020-10-13] MEDS: Multivitamin TABLET 1 TAB PO (08:22)
[2020-10-13] MEDS: Lithium Carbonate 300 MG TABLET 600 MG PO ×2 (08:22→20:06)
[2020-10-13] MEDS: Gabapentin 400 MG CAPSULE PO ×3 (08:22→20:07)
[2020-10-13] MEDS: gemfibroziL 600 MG TABLET PO ×2 (08:22→16:32)
[2020-10-13] MEDS: Nicotine 21 MG PATCH.TD24 TRANSDERMA (08:36)
[2020-10-13] MEDS: OLANZapine 10 MG TABLET PO (08:36)
[2020-10-13 08:47] LABS: Ammonia 33 umol/L (13-55)
[2020-10-13 08:55] LABS: Lithium 0.82 mmol/L (0.60-1.20)
[2020-10-13 09:11] LABS: Alanine Aminotransferase 120 U/L (0-31); Albumin Level 4.1 g/dL (3.5-5.0); Alkaline Phosphatase 99 U/L (39-117); Anion Gap 13 (12-20); Aspartate Amino Transferase 82 U/L (5-31); Bilirubin Total 0.3 mg/dL (0.0-1.0); Blood Urea Nitrogen 10 mg/dL (9-16); Calcium 9.6 mg/dL (8.4-10.2); Carbon Dioxide 24 mmol/L (22-29); Chloride 107 mmol/L (96-108); Creatinine Clr Calc Pharmacy 105.1; Estimated Glomerular Filt Rate > 60; Glucose Random 95 mg/dL (60-115); Lipase 29 U/L (8-78); Potassium 4.8 mmol/L (3.3-5.1); Sodium 139 mmol/L (135-145)
[2020-10-13 09:20] LABS: Amylase 69 U/L (28-100)
[2020-10-13] MEDS: clonazePAM 1 MG TABLET PO (09:24)
[2020-10-13] MEDS: HaloperidoL 5 MG TABLET PO (11:24)
--- NOTE | 2020-10-13 17:21 | P.PNPSI_ITS ---
Subjective Subjective Date of Service: 10/13/20 Reason For Visit: Depression, SI, Lability of Mood Subjective Notes: Conditional Voluntary Healthcare Proxy: No Guardianship: No Medical Problems Affecting Mental Status: No Interim History: Pt continues with mood lability, verbally caustic and with poorly modulated boundaries. [place] level 0.82. Discussed with pt tapering of some medications. She concurs that we should begin to taper Methadone. Discussed current med holds. Pt in agreement-she does request to return to her 2 mg bid of Klonopin. Several calls to [facility] [phone] with no return calls over the past few days. Case discussed with Lynne Shafer NP of addictions. Will begin Me thadone tapering. Also initiated Haldol 10 mg bid to assist pt in clarity of thought process, content ,maintenance of basic boundaries and assistance with her rage, lability, anger. Pt is actively drug seeking-asking peers if she can take their medications and offering to take meds others do not want. Presents with significant disinhibition. Medication Compliance: Yes Side effects from medications: Yes (sedation, disinhibition) Attending Groups: No Review of Systems Acute medical concerns: No Pt denies today. Medical Review of Systems: unchanged Review of Systems Reports behavioral changes, Reports confusion and Reports memory loss Psychiatric: Reports anxiety, Reports behavioral changes, Reports confusion, Reports difficulty concentrating, Reports irritability, Reports anhedonia, Reports memory loss, Reports mood swings, Reports paranoia and Reports homicidal ideation Mental Status Exam Mental Status Exam Patient Appearance: Fatigued, Disheveled, Inappropriate, Unkempt and Bizarre Patient Orientation: Person Level of Consciousness: Awake, Drowsy, Sedated, Disoriented, Restless and Alert Patient Behavior: Guarded, Talkative, Hyperactive, Suspicious, Asleep, Aggressive, Restless, Belligerent, Wandering, Verbal Threats, Swearing, Anxious, Sedated, Fearful, Fatigued, Distractible, Confused, Good Eye Contact, Crying, Uncooperative, Impulsive, Pacing and Poor Eye Contact Mood Description: Labile and Angry Affect Description: Labile and Angry Patient Cognition Impaired: Yes Speech Pattern: Slurred, Perseverating, Impoverished, Difficulty Finding Words, Spontaneous Speech, Rambling, Mumbled, Cofabulation, Excessive, Delayed, Pressured, Includes Profanity and Poor Articulation Memory Description: Remote Impaired and Episodic Impaired Hallucinations: None Delusions: Paranoid Ideation and Grandiose Perceptual Disturbances: Derealization Thought Process: Racing, Illogical, Distracted and Rumination Thought Content: positive for Flight of Ideas, positive for Racing, positive for [place], positive for Circumstantial, positive for Perseveration, positive for Preoccupation, positive for Loose Associations, positive for Slowed Thinking, positive for Tangential, positive for Evasive and positive for Homicidal Ideation Depressive Symptoms: Increased Anxiety, Diff. Making Decisions, Increased Irritability, Increased Fatigue and Loss of Energy Abnormal Motor Activity Signs and Symptoms: Aggression, Psychomotor Retardation, Agitation and Restlessness Judgement: Poor Diagnostics Vital Signs (24Hr): Vital Signs - 24 hr 10/12/20 18:25 10/12/20 20:44 Temperature 97.0 F Pulse Rate 96 101 H Blood Pressure 136/82 132/89 Body Mass Index 30.1 Labs Results: 10/11/20 07:56 10/13/20 08:26 Labs: Laboratory Results - last 48 hr 10/12/20 10/12/20 10/12/20 08:12 08:12 20:57 Sodium Potassium Chloride Carbon Dioxide Anion Gap BUN Creatinine Estim Creat Clear Calc Estimated GFR Random Glucose Estimat Average Glucose 100 Hemoglobin A1c % 5.1 Calcium Total Bilirubin AST ALT Alkaline Phosphatase Ammonia Total Protein Albumin Triglycerides 389 Cholesterol 182 LDL Cholesterol, Calc 74 HDL Cholesterol 31 Amylase Lipase TSH 2.67 Urine Test NEGATIVE [place] 10/13/20 10/13/20 10/13/20 08:26 08:26 08:26 Sodium 139 Potassium 4.8 Chloride 107 Carbon Dioxide 24 Anion Gap 13 BUN 10 Creatinine 0.72 Estim Creat Clear Calc 105.1 Estimated GFR > 60 Random Glucose 95 Estimat Average Glucose Hemoglobin A1c % Calcium 9.6 Total Bilirubin 0.3 AST 82 H ALT 120 H Alkaline Phosphatase 99 Ammonia 33 Total Protein 7.0 Albumin 4.1 Triglycerides Cholesterol LDL Cholesterol, Calc HDL Cholesterol Amylase 69 Lipase 29 TSH Urine Test [place] 0.82 EKG EKG: reviewed EKG Comment: Non Specific T wave abnormality Medications Medications Current Medications Generic Name Dose Route Start Last Admin Trade Name Freq PRN Reason Stop Dose Admin Acetaminophen 650 mg 10/10/20 17:57 Acetaminophen 325 Mg Tablet PO Q6H PRN Headache/Pain Mild Scale (1-3) Al Hydroxide/Mg Hydroxide 30 ml 10/10/20 17:57 Magnesium Hydrox/Alum Hydrox 30 Ml Oral.Susp PO Q6H PRN Heartburn/Nausea Amphetamine/Dextroamphetamine 10 mg 10/08/20 09:59 10/13/20 08:22 Dextroamphetami/Amphetamine Xr 10 Mg Cap.Er.24h PO 10 mg DAILY BARAK Administration Clonazepam 2 mg 10/13/20 21:00 Clonazepam 1 Mg Tablet PO BID BARAK Clonidine HCl 0.2 mg 10/08/20 21:00 10/12/20 20:44 Clonidine Hcl 0.2 Mg Tablet PO 0.2 mg BEDTIME BARAK Administration Doxepin HCl 150 mg 10/08/20 21:00 10/11/20 20:24 Doxepin Hcl 25 Mg Capsule PO 150 mg BEDTIME BARAK Administration Gabapentin 400 mg 10/12/20 21:00 10/13/20 14:54 Gabapentin 400 Mg Capsule PO 400 mg TID BARAK Administration Gemfibrozil 600 mg 10/12/20 16:30 10/13/20 16:32 Gemfibrozil 600 Mg Tablet PO 600 mg BIDAC BARAK Administration Haloperidol 10 mg 10/13/20 21:00 Haloperidol 5 Mg Tablet PO BID BARAK Hydroxyzine HCl 25 mg 10/10/20 17:57 Hydroxyzine Hcl 25 Mg Tablet PO BEDTIME PRN Anxiety [place] Carbonate 600 mg 10/12/20 21:00 10/13/20 08:22 [place] Carbonate 300 Mg Tablet PO 600 mg BID BARAK Administration Magnesium Hydroxide 30 ml 10/10/20 17:57 10/12/20 17:52 Milk Of Magnesia 30 Ml Oral.Susp PO 30 ml DAILY PRN Administration Constipation Methadone HCl 125 mg 10/14/20 09:00 Methadone Hcl 1 Mg/0.1 Ml Oral.Conc PO 10/14/20 09:01 ONCE@0900 BARAK Methadone HCl 120 mg 10/15/20 09:00 Methadone Hcl 1 Mg/0.1 Ml Oral.Conc PO 10/15/20 09:01 ONCE@0900 BARAK Methadone HCl 115 mg 10/16/20 09:00 Methadone Hcl 1 Mg/0.1 Ml Oral.Conc PO 10/16/20 09:01 ONCE@0900 BARAK Multivitamins 1 tab 10/13/20 09:00 10/13/20 08:22 B-Complex With Vitamin C Tablet PO 1 tab DAILY BARAK Administration Multivitamins/Vitamin C 1 tab 10/13/20 09:00 10/13/20 08:22 Multivitamin Tablet PO 1 tab DAILY BARAK Administration Nicotine 21 mg 10/08/20 11:33 10/13/20 08:36 Nicotine 21 Mg Patch.Td24 TRANSDERMA 21 mg DAILY PRN Administration Smoking cessation Nicotine Polacrilex 4 mg 10/11/20 16:57 10/12/20 21:17 Nicotine Polacrilex 2 Mg Gum BUCCAL 4 mg Q1H PRN Administration Nicotine Cravings Olanzapine 10 mg 10/09/20 09:19 10/13/20 08:36 Olanzapine 10 Mg Tablet PO 10 mg BID PRN Administration anxiety Pharmacy Consult 1 each 10/07/20 19:45 Consult Rx Perform Med Rec MISCELLANE ONCE PRN Consult order Trazodone HCl 50 mg 10/10/20 17:57 Trazodone Hcl 50 Mg Tablet PO BEDTIME PRN Insomnia Vitamin D 10 mcg 10/13/20 09:00 10/13/20 08:22 Cholecalciferol (Vitamin D3) 10 Mcg Tablet PO 10 mcg DAILY BARAK Administration Allergies Allergies Allergy/AdvReac Type Severity Reaction Status Date / Time No Known Allergies Allergy Verified 10/07/20 20:14 Assessment & Plan Assessment & Plan (1) Bipolar I disorder: Status: Acute Code(s): F31.9 - Bipolar disorder, unspecified Assessment and Plan: Pt continues to present with oversedation and breakthrough lability. Plan: Re-start Klonopin 2 mg bid Hold Doxepin MVI, B Complex, Vit D, Ensure ordered as discussed with pt-she is concerned about her general health habits Gembirozil initiated for elevated triglycerides Continue [place] 600 mg bid Continue Gabapentin 400 mg tid Hold Trazodone Decrease Methadone to 125 mg on 10/14, 120mg on 10/15 and 115 on 10/16. Pt asks to stop [place]. Will continue at this time and discuss when she is stabilized. Haldol 10 mg bid. (2) PTSD (post-traumatic stress disorder): Status: Acute Code(s): F43.10 - Post-traumatic stress disorder, unspecified (3) Opioid use disorder, moderate, on maintenance therapy, dependence: Status: Acute Code(s): F11.20 - Opioid dependence, uncomplicated Greater than 50% of the session was spent on counseling and/or coordination of care Patient educated on: medication risk/benefits Informed Consent: understands and further education needed Reason for contiued inpatient stay Substantial Risk for: harm to self, inability to function, rapid decompensation and med/psych decompensation
[2020-10-13 20:05] VITALS: BP 121/80; PULSE 92
[2020-10-13] MEDS: cloNIDine HCL 0.2 MG TABLET PO (20:05)
[2020-10-13] MEDS: clonazePAM 1 MG TABLET 2 MG PO (20:06)
[2020-10-13] MEDS: HaloperidoL 5 MG TABLET 10 MG PO (20:07)
[2020-10-14 06:00] VITALS: BP 118/63; PULSE 75; RESP 16; TEMP 36.7; O2SAT 97
[2020-10-14] MEDS: Nicotine 21 MG PATCH.TD24 TRANSDERMA (08:28)
[2020-10-14] MEDS: Milk of Magnesia 30 ML ORAL.SUSP PO (08:28)
[2020-10-14] MEDS: Lithium Carbonate 300 MG TABLET 600 MG PO ×2 (08:28→20:19)
[2020-10-14] MEDS: Acetaminophen 325 MG TABLET 650 MG PO (08:28)
[2020-10-14] MEDS: Cholecalciferol (Vitamin D3) 10 MCG TABLET PO (08:29)
[2020-10-14] MEDS: Nicotine Polacrilex 2 MG GUM 4 MG BUCCAL ×2 (08:29→20:24)
[2020-10-14] MEDS: gemfibroziL 600 MG TABLET PO ×2 (08:29→16:47)
[2020-10-14] MEDS: HaloperidoL 5 MG TABLET 10 MG PO ×2 (08:29→20:19)
[2020-10-14] MEDS: Gabapentin 400 MG CAPSULE PO ×3 (08:29→20:18)
[2020-10-14] MEDS: clonazePAM 1 MG TABLET 2 MG PO ×2 (08:29→20:19)
[2020-10-14] MEDS: Multivitamin TABLET 1 TAB PO (08:29)
[2020-10-14] MEDS: OLANZapine 10 MG TABLET PO (08:29)
--- NOTE | 2020-10-14 11:53 | P.PNPSI_ITS ---
Subjective Subjective Date of Service: 10/14/20 Reason For Visit: Depression, SI, Lability of Mood Interim History: Patient was seen in rounds today. She continues to be wanting more medications. I sat down and carefully reviewed her medications with her. She is already on a lot and high refused to increase or add anything else. She is not even able to say what she wants more medications. She continues to spend a lot of time in bed and has been isolative. She has had some aggressive episodes. In today's visit she actually appears to be somewhat drowsy had a slight slurring her speech. No SI/HI. No changes were made today Review of Systems Review of Systems Yes all other systems are reviewed and are negative Mental Status Exam Mental Status Exam Narrative: She is slightly drowsy. Speech is slightly slurred. Good eye co ntact. Affect is constricted. No SI/HI. No signs of psychosis. Cognitively she has slow thought processes. Judgment is intact Diagnostics Vital Signs (24Hr): Vital Signs - 24 hr 10/13/20 20:05 10/14/20 06:00 Temperature 98.1 F Pulse Rate 92 75 Respiratory Rate 16 Blood Pressure 121/80 118/63 Pulse Oximetry 97 Body Mass Index 30.1 Labs Results: 10/11/20 07:56 10/13/20 08:26 Labs: Laboratory Results - last 48 hr 10/12/20 10/13/20 10/13/20 20:57 08:26 08:26 Sodium 139 Potassium 4.8 Chloride 107 Carbon Dioxide 24 Anion Gap 13 BUN 10 Creatinine 0.72 Estim Creat Clear Calc 105.1 Estimated GFR > 60 Random Glucose 95 Calcium 9.6 Total Bilirubin 0.3 AST 82 H ALT 120 H Alkaline Phosphatase 99 Ammonia 33 Total Protein 7.0 Albumin 4.1 Amylase 69 Lipase 29 Urine Test NEGATIVE [place] 10/13/20 08:26 Sodium Potassium Chloride Carbon Dioxide Anion Gap BUN Creatinine Estim Creat Clear Calc Estimated GFR Random Glucose Calcium Total Bilirubin AST ALT Alkaline Phosphatase Ammonia Total Protein Albumin Amylase Lipase Urine Test [place] 0.82 Medications Medications Current Medications Generic Name Dose Route Start Last Admin Trade Name Freq PRN Reason Stop Dose Admin Acetaminophen 650 mg 10/10/20 17:57 10/14/20 08:28 Acetaminophen 325 Mg Tablet PO 650 mg Q6H PRN Administration Headache/Pain Mild Scale (1-3) Al Hydroxide/Mg Hydroxide 30 ml 10/10/20 17:57 Magnesium Hydrox/Alum Hydrox 30 Ml Oral.Susp PO Q6H PRN Heartburn/Nausea Amphetamine/Dextroamphetamine 10 mg 10/08/20 09:59 10/14/20 08:28 Dextroamphetami/Amphetamine Xr 10 Mg Cap.Er.24h PO 10 mg DAILY BARAK Administration Clonazepam 2 mg 10/13/20 21:00 10/14/20 08:29 Clonazepam 1 Mg Tablet PO 2 mg BID BARAK Administration Clonidine HCl 0.2 mg 10/08/20 21:00 10/13/20 20:05 Clonidine Hcl 0.2 Mg Tablet PO 0.2 mg BEDTIME BARAK Administration Doxepin HCl 150 mg 10/08/20 21:00 10/11/20 20:24 Doxepin Hcl 25 Mg Capsule PO 150 mg BEDTIME BARAK Administration Gabapentin 400 mg 10/12/20 21:00 10/14/20 08:29 Gabapentin 400 Mg Capsule PO 400 mg TID BARAK Administration Gemfibrozil 600 mg 10/12/20 16:30 10/14/20 08:29 Gemfibrozil 600 Mg Tablet PO 600 mg BIDAC BARAK Administration Haloperidol 10 mg 10/13/20 21:00 10/14/20 08:29 Haloperidol 5 Mg Tablet PO 10 mg BID BARAK Administration Hydroxyzine HCl 25 mg 10/10/20 17:57 Hydroxyzine Hcl 25 Mg Tablet PO BEDTIME PRN Anxiety [place] Carbonate 600 mg 10/12/20 21:00 10/14/20 08:28 [place] Carbonate 300 Mg Tablet PO 600 mg BID BARAK Administration Magnesium Hydroxide 30 ml 10/10/20 17:57 10/14/20 08:28 Milk Of Magnesia 30 Ml Oral.Susp PO 30 ml DAILY PRN Administration Constipation Methadone HCl 120 mg 10/15/20 09:00 Methadone Hcl 1 Mg/0.1 Ml Oral.Conc PO 10/15/20 09:01 ONCE@0900 BARAK Methadone HCl 115 mg 10/16/20 09:00 Methadone Hcl 1 Mg/0.1 Ml Oral.Conc PO 10/16/20 09:01 ONCE@0900 BARAK Multivitamins 1 tab 10/13/20 09:00 10/14/20 08:29 B-Complex With Vitamin C Tablet PO 1 tab DAILY BARAK Administration Multivitamins/Vitamin C 1 tab 10/13/20 09:00 10/14/20 08:29 Multivitamin Tablet PO 1 tab DAILY BARAK Administration Nicotine 21 mg 10/08/20 11:33 10/14/20 08:28 Nicotine 21 Mg Patch.Td24 TRANSDERMA 21 mg DAILY PRN Administration Smoking cessation Nicotine Polacrilex 4 mg 10/11/20 16:57 10/14/20 08:29 Nicotine Polacrilex 2 Mg Gum BUCCAL 4 mg Q1H PRN Administration Nicotine Cravings Olanzapine 10 mg 10/09/20 09:19 10/14/20 08:29 Olanzapine 10 Mg Tablet PO 10 mg BID PRN Administration anxiety Pharmacy Consult 1 each 10/07/20 19:45 Consult Rx Perform Med Rec MISCELLANE ONCE PRN Consult order Trazodone HCl 50 mg 10/10/20 17:57 Trazodone Hcl 50 Mg Tablet PO BEDTIME PRN Insomnia Vitamin D 10 mcg 10/13/20 09:00 10/14/20 08:29 Cholecalciferol (Vitamin D3) 10 Mcg Tablet PO 10 mcg DAILY BARAK Administration Allergies Allergies Allergy/AdvReac Type Severity Reaction Status Date / Time No Known Allergies Allergy Verified 10/07/20 20:14 Assessment & Plan Assessment & Plan (1) Bipolar I disorder: Status: Acute Code(s): F31.9 - Bipolar disorder, unspecified Assessment and Plan: Pt continues to present with oversedation and breakthrough lability. Plan: Re-start Klonopin 2 mg bid Hold Doxepin MVI, B Complex, Vit D, Ensure ordered as discussed with pt-she is concerned about her general health habits Gembirozil initiated for elevated triglycerides Continue [place] 600 mg bid Continue Gabapentin 400 mg tid Hold Trazodone Decrease Methadone to 125 mg on 10/14, 120mg on 10/15 and 115 on 10/16. Pt asks to stop [place]. Will continue at this time and discuss when she is stabilized. Haldol 10 mg bid. (2) PTSD (post-traumatic stress disorder): Status: Acute Code(s): F43.10 - Post-traumatic stress disorder, unspecified (3) Opioid use disorder, moderate, on maintenance therapy, dependence: Status: Acute Code(s): F11.20 - Opioid dependence, uncomplicated Greater than 50% of the session was spent on counseling and/or coordination of care Reason for contiued inpatient stay Substantial Risk for: other
[2020-10-14 13:49] LABS: Folate 9.9 ng/mL (> or = 4.0); Vitamin B12 288 pg/mL (200-900)
[2020-10-14 20:20] VITALS: BP 136/70; PULSE 90
[2020-10-14] MEDS: cloNIDine HCL 0.2 MG TABLET PO (20:20)
[2020-10-14 20:47] VITALS: BP 136/70; PULSE 90; RESP 16; TEMP 36.8; O2SAT 95
[2020-10-15 06:00] VITALS: BP 104/52; PULSE 83; RESP 16; TEMP 37; O2SAT 95
[2020-10-15] MEDS: Acetaminophen 325 MG TABLET 650 MG PO (07:56)
[2020-10-15] MEDS: Nicotine 21 MG PATCH.TD24 TRANSDERMA (07:56)
[2020-10-15] MEDS: Gabapentin 400 MG CAPSULE PO ×3 (07:56→20:08)
[2020-10-15] MEDS: clonazePAM 1 MG TABLET 2 MG PO ×2 (07:56→20:08)
[2020-10-15] MEDS: OLANZapine 10 MG TABLET PO ×2 (07:57→13:58)
[2020-10-15] MEDS: Multivitamin TABLET 1 TAB PO (07:57)
[2020-10-15] MEDS: Cholecalciferol (Vitamin D3) 10 MCG TABLET PO (07:57)
[2020-10-15] MEDS: Nicotine Polacrilex 2 MG GUM 4 MG BUCCAL (07:57)
[2020-10-15] MEDS: Lithium Carbonate 300 MG TABLET 600 MG PO ×2 (07:57→20:09)
[2020-10-15] MEDS: HaloperidoL 5 MG TABLET 10 MG PO ×2 (07:57→20:09)
[2020-10-15] MEDS: gemfibroziL 600 MG TABLET PO ×2 (07:58→18:09)
--- NOTE | 2020-10-15 08:34 | P.PNPSI_ITS ---
Subjective Subjective Date of Service: 10/15/20 Reason For Visit: Depression, SI, Lability of Mood Subjective Notes: Conditional Voluntary Interim History: patient was seen in rounds today. She continues to be med seeking an today wanted to increase her Adderall which I refused. She complained of being tired during the day which I explained to her may be related to her using every available p.r.n.. She has been active. She had a better day. She continues to be somewhat peripheral to the milieu. She did use a little bit less of her p.r.n. yesterday. No SI. No changes were made today Mental Status Exam Mental Status Exam Narrative: in today's visit she is alert, pleasant and interactive. She is more engageable. Speech is normal. Good eye contact. Appropriate affect. No signs of psychosis. No SI. Cognitively is intact. Judgment is intact Diagnostics Vital Signs (24Hr): Vital Signs - 24 hr 10/14/20 20:20 10/14/20 20:47 10/15/20 06:00 Temperature 98.3 F 98.6 F Pulse Rate 90 90 83 Respiratory Rate 16 16 Blood Pressure 136/70 136/70 104/52 L Pulse Oximetry 95 95 Body Mass Index 30.1 Labs Results: 10/11/20 07:56 10/13/20 08:26 Labs: Laboratory Results - last 48 hr 10/12/20 10/13/20 10/13/20 08:12 08:26 08:26 Sodium 139 Potassium 4.8 Chloride 107 Carbon Dioxide 24 Anion Gap 13 BUN 10 Creatinine 0.72 Estim Creat Clear Calc 105.1 Estimated GFR > 60 Random Glucose 95 Calcium 9.6 Total Bilirubin 0.3 AST 82 H ALT 120 H Alkaline Phosphatase 99 Ammonia 33 Total Protein 7.0 Albumin 4.1 Amylase 69 Lipase 29 Vitamin B12 288 Folate 9.9 [place] 10/13/20 08:26 Sodium Potassium Chloride Carbon Dioxide Anion Gap BUN Creatinine Estim Creat Clear Calc Estimated GFR Random Glucose Calcium Total Bilirubin AST ALT Alkaline Phosphatase Ammonia Total Protein Albumin Amylase Lipase Vitamin B12 Folate [place] 0.82 Medications Medications Current Medications Generic Name Dose Route Start Last Admin Trade Name Freq PRN Reason Stop Dose Admin Acetaminophen 650 mg 10/10/20 17:57 10/15/20 07:56 Acetaminophen 325 Mg Tablet PO 650 mg Q6H PRN Administration Headache/Pain Mild Scale (1-3) Al Hydroxide/Mg Hydroxide 30 ml 10/10/20 17:57 Magnesium Hydrox/Alum Hydrox 30 Ml Oral.Susp PO Q6H PRN Heartburn/Nausea Amphetamine/Dextroamphetamine 10 mg 10/08/20 09:59 10/15/20 07:57 Dextroamphetami/Amphetamine Xr 10 Mg Cap.Er.24h PO 10 mg DAILY BARAK Administration Clonazepam 2 mg 10/13/20 21:00 10/15/20 07:56 Clonazepam 1 Mg Tablet PO 2 mg BID BARAK Administration Clonidine HCl 0.2 mg 10/08/20 21:00 10/14/20 20:20 Clonidine Hcl 0.2 Mg Tablet PO 0.2 mg BEDTIME BARAK Administration Doxepin HCl 150 mg 10/08/20 21:00 10/11/20 20:24 Doxepin Hcl 25 Mg Capsule PO 150 mg BEDTIME BARAK Administration Gabapentin 400 mg 10/12/20 21:00 10/15/20 07:56 Gabapentin 400 Mg Capsule PO 400 mg TID BARAK Administration Gemfibrozil 600 mg 10/12/20 16:30 10/15/20 07:58 Gemfibrozil 600 Mg Tablet PO 600 mg BIDAC BARAK Administration Haloperidol 10 mg 10/13/20 21:00 10/15/20 07:57 Haloperidol 5 Mg Tablet PO 10 mg BID BARAK Administration Hydroxyzine HCl 25 mg 10/10/20 17:57 Hydroxyzine Hcl 25 Mg Tablet PO BEDTIME PRN Anxiety [place] Carbonate 600 mg 10/12/20 21:00 10/15/20 07:57 [place] Carbonate 300 Mg Tablet PO 600 mg BID BARAK Administration Magnesium Hydroxide 30 ml 10/10/20 17:57 10/14/20 08:28 Milk Of Magnesia 30 Ml Oral.Susp PO 30 ml DAILY PRN Administration Constipation Methadone HCl 120 mg 10/15/20 09:00 10/15/20 07:56 Methadone Hcl 1 Mg/0.1 Ml Oral.Conc PO 10/15/20 09:01 120 mg ONCE@0900 BARAK Administration Methadone HCl 115 mg 10/16/20 09:00 Methadone Hcl 1 Mg/0.1 Ml Oral.Conc PO 10/16/20 09:01 ONCE@0900 BARAK Multivitamins 1 tab 10/13/20 09:00 10/15/20 07:57 B-Complex With Vitamin C Tablet PO 1 tab DAILY BARAK Administration Multivitamins/Vitamin C 1 tab 10/13/20 09:00 10/15/20 07:57 Multivitamin Tablet PO 1 tab DAILY BARAK Administration Nicotine 21 mg 10/08/20 11:33 10/15/20 07:56 Nicotine 21 Mg Patch.Td24 TRANSDERMA 21 mg DAILY PRN Administration Smoking cessation Nicotine Polacrilex 4 mg 10/11/20 16:57 10/15/20 07:57 Nicotine Polacrilex 2 Mg Gum BUCCAL 4 mg Q1H PRN Administration Nicotine Cravings Olanzapine 10 mg 10/09/20 09:19 10/15/20 07:57 Olanzapine 10 Mg Tablet PO 10 mg BID PRN Administration anxiety Pharmacy Consult 1 each 10/07/20 19:45 Consult Rx Perform Med Rec MISCELLANE ONCE PRN Consult order Trazodone HCl 50 mg 10/10/20 17:57 Trazodone Hcl 50 Mg Tablet PO BEDTIME PRN Insomnia Vitamin D 10 mcg 10/13/20 09:00 10/15/20 07:57 Cholecalciferol (Vitamin D3) 10 Mcg Tablet PO 10 mcg DAILY BARAK Administration Allergies Allergies Allergy/AdvReac Type Severity Reaction Status Date / Time No Known Allergies Allergy Verified 10/07/20 20:14 Assessment & Plan Assessment & Plan (1) Bipolar I disorder: Status: Acute Code(s): F31.9 - Bipolar disorder, unspecified Assessment and Plan: Pt continues to present with oversedation and breakthrough lability. Plan: Re-start Klonopin 2 mg bid Hold Doxepin MVI, B Complex, Vit D, Ensure ordered as discussed with pt-she is concerned about her general health habits Gembirozil initiated for elevated triglycerides Continue [place] 600 mg bid Continue Gabapentin 400 mg tid Hold Trazodone Decrease Methadone to 125 mg on 10/14, 120mg on 10/15 and 115 on 10/16. Pt asks to stop [place]. Will continue at this time and discuss when she is stabilized. Haldol 10 mg bid. continue current regimen and plans (2) PTSD (post-traumatic stress disorder): Status: Acute Code(s): F43.10 - Post-traumatic stress disorder, unspecified (3) Opioid use disorder, moderate, on maintenance therapy, dependence: Status: Acute Code(s): F11.20 - Opioid dependence, uncomplicated Greater than 50% of the session was spent on counseling and/or coordination of care Reason for contiued inpatient stay Substantial Risk for: other
[2020-10-15 18:00] VITALS: BP 124/74; PULSE 84; RESP 20; TEMP 36.5; O2SAT 94
[2020-10-15 20:09] VITALS: BP 124/74; PULSE 84
[2020-10-15] MEDS: cloNIDine HCL 0.2 MG TABLET PO (20:09)
[2020-10-16] MEDS: gemfibroziL 600 MG TABLET PO ×2 (08:36→16:49)
[2020-10-16] MEDS: Gabapentin 400 MG CAPSULE PO ×3 (08:37→20:19)
[2020-10-16] MEDS: Multivitamin TABLET 1 TAB PO (08:37)
[2020-10-16] MEDS: Lithium Carbonate 300 MG TABLET 600 MG PO ×2 (08:37→20:19)
[2020-10-16] MEDS: Cholecalciferol (Vitamin D3) 10 MCG TABLET PO (08:37)
[2020-10-16] MEDS: clonazePAM 1 MG TABLET 2 MG PO (08:38)
[2020-10-16] MEDS: HaloperidoL 5 MG TABLET 10 MG PO ×2 (08:38→20:20)
[2020-10-16 09:00] VITALS: BP 115/71; PULSE 84; RESP 16
[2020-10-16 10:08] VITALS: O2SAT 97
[2020-10-16] MEDS: Nicotine Polacrilex 2 MG GUM 4 MG BUCCAL (10:14)
[2020-10-16] MEDS: Nicotine 21 MG PATCH.TD24 TRANSDERMA (10:14)
[2020-10-16] MEDS: clonazePAM 0.5 MG TABLET 2.5 MG PO (15:06)
--- NOTE | 2020-10-16 18:23 | P.PNPSI_ITS ---
Subjective Subjective Date of Service: 10/16/20 Reason For Visit: Depression, SI, Lability of Mood Subjective Notes: Conditional Voluntary Healthcare Proxy: No Guardianship: No Medical Problems Affecting Mental Status: No Interim History: Did we meet last week? I don't remember. Pt appears improved with team support, care, milieu and medication changes. She reports feeling anxious but improved with Methadone tapering. Klonopin by history was reportedly 4 mg bid-however, we will stay at 4.5 mg total. Team reports lability, med seeking with sedation, paranoia, yelling and disinhibition at times, however with some improvement. Medication Compliance: Yes Side effects from medications: No Attending Groups: Yes Review of Systems Acute medical concerns: No Medical Review of Systems: unchanged Review of Systems Reports behavioral changes and Reports confusion Psychiatric: Reports anxiety, Reports behavioral changes, Reports confusion, Reports difficulty concentrating, Reports irritability, Reports mood swings and Reports paranoia Mental Status Exam Mental Status Exam Patient Appearance: Disheveled Patient Orientation: Person, Place and Situation Level of Consciousness: Alert Patient Behavior: Talkative, Cooperative and Good Eye Contact Mood Description: Labile Affect Description: Labile Patient Cognition Impaired: No Ability to Follow Directions: Good Speech Pattern: Spontaneous Speech Memory Description: Remote Impaired and Episodic Impaired Hallucinations: None Delusions: Not Present Thought Process: Goal Oriented Thought Content: positive for [place] and positive for Circumstantial Depressive Symptoms: Increased Irritability and Difficulty Concentrating Judgement: Fair Diagnostics Vital Signs (24Hr): Vital Signs - 24 hr 10/15/20 20:09 10/16/20 09:00 10/16/20 10:08 Pulse Rate 84 84 Respiratory Rate 16 Blood Pressure 124/74 115/71 Pulse Oximetry 97 Body Mass Index 30.1 Labs Results: 10/11/20 07:56 10/13/20 08:26 Medications Medications Current Medications Generic Name Dose Route Start Last Admin Trade Name Freq PRN Reason Stop Dose Admin Acetaminophen 650 mg 10/10/20 17:57 10/15/20 07:56 Acetaminophen 325 Mg Tablet PO 650 mg Q6H PRN Administration Headache/Pain Mild Scale (1-3) Al Hydroxide/Mg Hydroxide 30 ml 10/10/20 17:57 Magnesium Hydrox/Alum Hydrox 30 Ml Oral.Susp PO Q6H PRN Heartburn/Nausea Amphetamine/Dextroamphetamine 10 mg 10/08/20 09:59 10/16/20 08:38 Dextroamphetami/Amphetamine Xr 10 Mg Cap.Er.24h PO 10 mg DAILY BARAK Administration Clonazepam 2 mg 10/17/20 06:00 Clonazepam 1 Mg Tablet PO 0600 BARAK Clonazepam 2.5 mg 10/16/20 16:00 10/16/20 15:06 Clonazepam 0.5 Mg Tablet PO 2.5 mg 1600 BARAK Administration Clonidine HCl 0.2 mg 10/08/20 21:00 10/15/20 20:09 Clonidine Hcl 0.2 Mg Tablet PO 0.2 mg BEDTIME BARAK Administration Doxepin HCl 150 mg 10/08/20 21:00 10/11/20 20:24 Doxepin Hcl 25 Mg Capsule PO 150 mg BEDTIME BARAK Administration Gabapentin 400 mg 10/12/20 21:00 10/16/20 14:25 Gabapentin 400 Mg Capsule PO 400 mg TID BARAK Administration Gemfibrozil 600 mg 10/12/20 16:30 10/16/20 16:49 Gemfibrozil 600 Mg Tablet PO 600 mg BIDAC BARAK Administration Haloperidol 10 mg 10/13/20 21:00 10/16/20 08:38 Haloperidol 5 Mg Tablet PO 10 mg BID BARAK Administration Hydroxyzine HCl 25 mg 10/10/20 17:57 Hydroxyzine Hcl 25 Mg Tablet PO BEDTIME PRN Anxiety [place] Carbonate 600 mg 10/12/20 21:00 10/16/20 08:37 [place] Carbonate 300 Mg Tablet PO 600 mg BID BARAK Administration Magnesium Hydroxide 30 ml 10/10/20 17:57 10/14/20 08:28 Milk Of Magnesia 30 Ml Oral.Susp PO 30 ml DAILY PRN Administration Constipation Methadone HCl 110 mg 10/17/20 09:00 Methadone Hcl 1 Mg/0.1 Ml Oral.Conc PO DAILY BARAK Multivitamins 1 tab 10/13/20 09:00 10/16/20 08:36 B-Complex With Vitamin C Tablet PO 1 tab DAILY BARAK Administration Multivitamins/Vitamin C 1 tab 10/13/20 09:00 10/16/20 08:37 Multivitamin Tablet PO 1 tab DAILY BARAK Administration Nicotine 21 mg 10/08/20 11:33 10/16/20 10:14 Nicotine 21 Mg Patch.Td24 TRANSDERMA 21 mg DAILY PRN Administration Smoking cessation Nicotine Polacrilex 4 mg 10/11/20 16:57 10/16/20 10:14 Nicotine Polacrilex 2 Mg Gum BUCCAL 4 mg Q1H PRN Administration Nicotine Cravings Olanzapine 10 mg 10/09/20 09:19 10/15/20 13:58 Olanzapine 10 Mg Tablet PO 10 mg BID PRN Administration anxiety Pharmacy Consult 1 each 10/07/20 19:45 Consult Rx Perform Med Rec MISCELLANE ONCE PRN Consult order Trazodone HCl 50 mg 10/10/20 17:57 Trazodone Hcl 50 Mg Tablet PO BEDTIME PRN Insomnia Vitamin D 10 mcg 10/13/20 09:00 10/16/20 08:37 Cholecalciferol (Vitamin D3) 10 Mcg Tablet PO 10 mcg DAILY BARAK Administration Allergies Allergies Allergy/AdvReac Type Severity Reaction Status Date / Time No Known Allergies Allergy Verified 10/07/20 20:14 Assessment & Plan Assessment & Plan (1) Bipolar I disorder: Status: Acute Code(s): F31.9 - Bipolar disorder, unspecified Assessment and Plan: Pt continues to present with oversedation and breakthrough lability. Plan: Increase Klonopin 2 mg a.m. 2.5 mg HS Hold Doxepin, Trazodone MVI, B Complex, Vit D, Ensure ordered as discussed with pt-she is concerned about her general health habits Gembirozil initiated for elevated triglycerides Continue [place] 600 mg bid, Gabapentin 400 mg tid Decrease Methadone to 110 on 10/17/20. Haldol 10 mg bid. (2) PTSD (post-traumatic stress disorder): Status: Acute Code(s): F43.10 - Post-traumatic stress disorder, unspecified (3) Opioid use disorder, moderate, on maintenance therapy, dependence: Status: Acute Code(s): F11.20 - Opioid dependence, uncomplicated Greater than 50% of the session was spent on counseling and/or coordination of care Patient educated on: medication risk/benefits Informed Consent: understands Reason for contiued inpatient stay Substantial Risk for: harm to self, harm to others, inability to function and rapid decompensation
[2020-10-16 20:10] VITALS: BP 139/73; PULSE 91; TEMP 36.1
[2020-10-16 20:19] VITALS: BP 139/73; PULSE 91
[2020-10-16] MEDS: cloNIDine HCL 0.2 MG TABLET PO (20:19)
[2020-10-17] MEDS: clonazePAM 1 MG TABLET 2 MG PO (05:43)
[2020-10-17 06:00] VITALS: BP 102/63; PULSE 72; TEMP 36.7; O2SAT 97
[2020-10-17] MEDS: HaloperidoL 5 MG TABLET 10 MG PO ×2 (08:35→20:13)
[2020-10-17] MEDS: Nicotine Polacrilex 2 MG GUM 4 MG BUCCAL ×2 (08:36→18:09)
[2020-10-17] MEDS: OLANZapine 10 MG TABLET PO (08:36)
[2020-10-17] MEDS: gemfibroziL 600 MG TABLET PO ×2 (08:36→17:57)
[2020-10-17] MEDS: Cholecalciferol (Vitamin D3) 10 MCG TABLET PO (08:36)
[2020-10-17] MEDS: Lithium Carbonate 300 MG TABLET 600 MG PO ×2 (08:36→20:12)
[2020-10-17] MEDS: Nicotine 21 MG PATCH.TD24 TRANSDERMA (08:36)
[2020-10-17] MEDS: Gabapentin 400 MG CAPSULE PO ×3 (08:36→20:12)
[2020-10-17] MEDS: Multivitamin TABLET 1 TAB PO (08:36)
--- NOTE | 2020-10-17 12:57 | HO.PSYCHPN ---
Subjective Subjective Date of Service: 10/17/20 Reason For Visit: Depression, SI, Lability of Mood Subjective Notes: Conditional Voluntary Healthcare Proxy: No Guardianship: No Medical Problems Affecting Mental Status: No Interim History: Kylee continues to present with sedation, lability of mood, intermittent agitation. She has an increase in clarity and is able to maintain a discussion about her plan of care and review of her medication regime which she approves of. She discussed Adderall titration citing a hx of 40-60 mg daily-being at 10 mg does not help with her having more clarity and focus-will trial a 30 mg daily titration. Reports a fall in the shower this a.m. without injury-declines medical eval for this as she reports she is not injured. Discussed why she has been asked to attend [facility] and allow her residential program to break from her current symptoms and resulting behaviors which she verbalized understanding to. Discussed [place] which last week she asked to stop-stating today she feels it is helpful in stabilizing her mood. Medication Compliance: Yes Side effects from medications: No Attending Groups: Yes Review of Systems Acute medical concerns: No Reported to have fallen in the shower. Denies injury. Denies need for further workup. Medical Review of Systems: unchanged Review of Systems Reports behavioral changes and Reports confusion Psychiatric: Reports anxiety, Reports behavioral changes, Reports confusion, Reports difficulty concentrating, Reports irritability, Reports mood swings, Reports paranoia and Reports suicidal ideation (denies SI, plan or intent today) Mental Status Exam Mental Status Exam Patient Appearance: Disheveled Patient Orientation: Person, Place, Time and Situation Level of Consciousness: Alert Patient Behavior: Talkative, Anxious, Fatigued, Distractible and Good Eye Contact Mood Description: Constricted and Labile Affect Description: Constricted and Labile Patient Cognition Impaired: No Ability to Follow Directions: Good Speech Pattern: Clear, Appropriate, Spontaneous Speech, Coherent and Soft-Spoken Memory Description: Remote Impaired and Episodic Impaired Hallucinations: None Delusions: Not Present Thought Process: [place] (mild) and Distracted Thought Content: positive for [place] (mild), positive for Circumstantial and positive for Suicidal Ideation (denies) Depressive Symptoms: Diff. Making Decisions, Increased Irritability, Unhappiness and Difficulty Concentrating Judgement: Fair Diagnostics Vital Signs (24Hr): Vital Signs - 24 hr 10/16/20 20:10 10/16/20 20:19 10/17/20 06:00 Temperature 97.0 F 98.1 F Pulse Rate 91 91 72 Blood Pressure 139/73 139/73 102/63 Pulse Oximetry 97 Body Mass Index 30.1 Labs Results: 10/11/20 07:56 10/13/20 08:26 Medications Medications Current Medications Generic Name Dose Route Start Last Admin Trade Name [place] PRN Reason Stop Dose Admin Acetaminophen 650 mg 10/10/20 17:57 10/15/20 07:56 Acetaminophen 325 Mg Tablet PO 650 mg Q6H PRN Administration Headache/Pain Mild Scale (1-3) Al Hydroxide/Mg Hydroxide 30 ml 10/10/20 17:57 Magnesium Hydrox/Alum Hydrox 30 Ml Oral.Susp PO Q6H PRN Heartburn/Nausea Amphetamine/Dextroamphetamine 10 mg 10/08/20 09:59 10/17/20 08:36 Dextroamphetami/Amphetamine Xr 10 Mg Cap.Er.24h PO 10 mg DAILY BARAK Administration Clonazepam 2 mg 10/17/20 06:00 10/17/20 05:43 Clonazepam 1 Mg Tablet PO 2 mg 0600 BARAK Administration Clonazepam 2.5 mg 10/16/20 16:00 10/16/20 15:06 Clonazepam 0.5 Mg Tablet PO 2.5 mg 1600 BARAK Administration Clonidine HCl 0.2 mg 10/08/20 21:00 10/16/20 20:19 Clonidine Hcl 0.2 Mg Tablet PO 0.2 mg BEDTIME BARAK Administration Doxepin HCl 150 mg 10/08/20 21:00 10/11/20 20:24 Doxepin Hcl 25 Mg Capsule PO 150 mg BEDTIME BARAK Administration Gabapentin 400 mg 10/12/20 21:00 10/17/20 08:36 Gabapentin 400 Mg Capsule PO 400 mg TID BARAK Administration Gemfibrozil 600 mg 10/12/20 16:30 10/17/20 08:36 Gemfibrozil 600 Mg Tablet PO 600 mg BIDAC BARAK Administration Haloperidol 10 mg 10/13/20 21:00 10/17/20 08:35 Haloperidol 5 Mg Tablet PO 10 mg BID BARAK Administration Hydroxyzine HCl 25 mg 10/10/20 17:57 Hydroxyzine Hcl 25 Mg Tablet PO BEDTIME PRN Anxiety [place] Carbonate 600 mg 10/12/20 21:00 10/17/20 08:36 [place] Carbonate 300 Mg Tablet PO 600 mg BID BARAK Administration Magnesium Hydroxide 30 ml 10/10/20 17:57 10/14/20 08:28 Milk Of Magnesia 30 Ml Oral.Susp PO 30 ml DAILY PRN Administration Constipation Methadone HCl 110 mg 10/17/20 09:00 10/17/20 08:35 Methadone Hcl 1 Mg/0.1 Ml Oral.Conc PO 110 mg DAILY BARAK Administration Multivitamins 1 tab 10/13/20 09:00 10/17/20 08:36 B-Complex With Vitamin C Tablet PO 1 tab DAILY BARAK Administration Multivitamins/Vitamin C 1 tab 10/13/20 09:00 10/17/20 08:36 Multivitamin Tablet PO 1 tab DAILY BARAK Administration Nicotine 21 mg 10/08/20 11:33 10/17/20 08:36 Nicotine 21 Mg Patch.Td24 TRANSDERMA 21 mg DAILY PRN Administration Smoking cessation Nicotine Polacrilex 4 mg 10/11/20 16:57 10/17/20 08:36 Nicotine Polacrilex 2 Mg Gum BUCCAL 4 mg Q1H PRN Administration Nicotine Cravings Olanzapine 10 mg 10/09/20 09:19 10/17/20 08:36 Olanzapine 10 Mg Tablet PO 10 mg BID PRN Administration anxiety Pharmacy Consult 1 each 10/07/20 19:45 Consult Rx Perform Med Rec MISCELLANE ONCE PRN Consult order Trazodone HCl 50 mg 10/10/20 17:57 Trazodone Hcl 50 Mg Tablet PO BEDTIME PRN Insomnia Vitamin D 10 mcg 10/13/20 09:00 10/17/20 08:36 Cholecalciferol (Vitamin D3) 10 Mcg Tablet PO 10 mcg DAILY BARAK Administration Allergies Allergies Allergy/AdvReac Type Severity Reaction Status Date / Time No Known Allergies Allergy Verified 10/07/20 20:14 Assessment & Plan Assessment & Plan (1) Bipolar I disorder: Status: Acute Code(s): F31.9 - Bipolar disorder, unspecified Assessment and Plan: Pt continues to present with oversedation and breakthrough lability. Plan: Continue Klonopin 2 mg a.m. 2.5 mg HS Increase Adderall to 30 mg a.m. Hold Doxepin, Trazodone MVI, B Complex, Vit D, Ensure ordered as discussed with pt-she is concerned about her general health habits Gembirozil initiated for elevated triglycerides Continue [place] 600 mg bid, Gabapentin 400 mg tid Decrease Methadone to 110 on 10/17/20. Haldol 10 mg bid. (2) PTSD (post-traumatic stress disorder): Status: Acute Code(s): F43.10 - Post-traumatic stress disorder, unspecified (3) Opioid use disorder, moderate, on maintenance therapy, dependence: Status: Acute Code(s): F11.20 - Opioid dependence, uncomplicated Greater than 50% of the session was spent on counseling and/or coordination of care Reason for contiued inpatient stay Substantial Risk for: harm to self, harm to others, inability to function and rapid decompensation
[2020-10-17] MEDS: clonazePAM 0.5 MG TABLET 2.5 MG PO (17:57)
[2020-10-17 18:00] VITALS: RESP 16
[2020-10-17 20:12] VITALS: BP 112/65; PULSE 84
[2020-10-17] MEDS: cloNIDine HCL 0.2 MG TABLET PO (20:12)
[2020-10-18] MEDS: methADONE HCl 20 MG/2 ML ORAL.CONC 110 MG PO (06:35)
[2020-10-18] MEDS: clonazePAM 1 MG TABLET 2 MG PO (06:36)
[2020-10-18] MEDS: Gabapentin 400 MG CAPSULE PO ×3 (09:10→20:16)
[2020-10-18] MEDS: Lithium Carbonate 300 MG TABLET 600 MG PO ×2 (09:10→20:17)
[2020-10-18] MEDS: HaloperidoL 5 MG TABLET 10 MG PO ×2 (09:11→20:17)
[2020-10-18] MEDS: gemfibroziL 600 MG TABLET PO ×2 (09:11→16:40)
[2020-10-18] MEDS: Cholecalciferol (Vitamin D3) 10 MCG TABLET PO (09:11)
[2020-10-18] MEDS: Nicotine Polacrilex 2 MG GUM 4 MG BUCCAL (09:11)
[2020-10-18] MEDS: Multivitamin TABLET 1 TAB PO (09:11)
--- NOTE | 2020-10-18 12:29 | P.PNPSI_ITS ---
Subjective Subjective Date of Service: 10/18/20 Reason For Visit: Depression, SI, Lability of Mood Subjective Notes: Conditional Voluntary Healthcare Proxy: No Guardianship: No Medical Problems Affecting Mental Status: No Interim History: Continues with a mixed presentation-sedation, lability, lack of modulation. Discussed with pt whose focus is on insomnia. Hx of Doxepin 150 mg hs. Will re-start 100 mg. Discussed ongoing Methadone tapering. Will go to 105 on 10/19 and 100 on 10/20. Pt wanting to continue other agents, I am feeling much better. Discussed missing her son, who lives with her mother. Usually she is able to see him on weekends, but since illness sx exacerbated she has not. Tearful, with very low opinion of herself- just a dirty addict a disgrace of a mother . Discussion of disease concept and illness not being her will nor her choice, but good management of symptoms always a benefit for her. She concurred. Discussion of separation of illness from person and will and encouraged to continue discussion with team to learn different perspectives. Medication Compliance: Yes Side effects from medications: Yes (sedation,lability decreasing but present) Attending Groups: Intermittent Review of Systems Acute medical concerns: No Medical Review of Systems: unchanged Review of Systems Reports behavioral changes Psychiatric: Reports abnormal sleep pattern, Reports anxiety, Reports behavioral changes, Reports depression, Reports difficulty concentrating, Reports hopelessness, Reports irritability, Reports anhedonia, Reports mood swings and Reports suicidal ideation (reports she is feeling safe on M5.) Diagnostics Vital Signs (24Hr): Vital Signs - 24 hr 10/17/20 18:00 10/17/20 20:12 Pulse Rate 84 Respiratory Rate 16 Blood Pressure 112/65 Body Mass Index 30.1 Labs Results: 10/11/20 07:56 10/13/20 08:26 Medications Medications Current Medications Generic Name Dose Route Start Last Admin Trade Name Freq PRN Reason Stop Dose Admin Acetaminophen 650 mg 10/10/20 17:57 10/15/20 07:56 Acetaminophen 325 Mg Tablet PO 650 mg Q6H PRN Administration Headache/Pain Mild Scale (1-3) Al Hydroxide/Mg Hydroxide 30 ml 10/10/20 17:57 Magnesium Hydrox/Alum Hydrox 30 Ml Oral.Susp PO Q6H PRN Heartburn/Nausea Amphetamine/Dextroamphetamine 30 mg 10/18/20 09:00 10/18/20 09:10 Dextroamphetami/Amphetamine Xr 10 Mg Cap.Er.24h PO 30 mg DAILY BARAK Administration Clonazepam 2.5 mg 10/16/20 16:00 10/17/20 17:57 Clonazepam 0.5 Mg Tablet PO 2.5 mg 1600 BARAK Administration Clonazepam 2 mg 10/18/20 06:30 10/18/20 06:36 Clonazepam 1 Mg Tablet PO 2 mg DAILY@0630 BARAK Administration Clonidine HCl 0.2 mg 10/08/20 21:00 10/17/20 20:12 Clonidine Hcl 0.2 Mg Tablet PO 0.2 mg BEDTIME BARAK Administration Doxepin HCl 150 mg 10/08/20 21:00 10/11/20 20:24 Doxepin Hcl 25 Mg Capsule PO 150 mg BEDTIME BARAK Administration Gabapentin 400 mg 10/12/20 21:00 10/18/20 09:10 Gabapentin 400 Mg Capsule PO 400 mg TID BARAK Administration Gemfibrozil 600 mg 10/12/20 16:30 10/18/20 09:11 Gemfibrozil 600 Mg Tablet PO 600 mg BIDAC BARAK Administration Haloperidol 10 mg 10/13/20 21:00 10/18/20 09:11 Haloperidol 5 Mg Tablet PO 10 mg BID BARAK Administration Hydroxyzine HCl 25 mg 10/10/20 17:57 Hydroxyzine Hcl 25 Mg Tablet PO BEDTIME PRN Anxiety [place] Carbonate 600 mg 10/12/20 21:00 10/18/20 09:10 [place] Carbon[place] 300 Mg Tablet PO 600 mg BID BARAK Administration Magnesium Hydroxide 30 ml 10/10/20 17:57 10/14/20 08:28 Milk Of Magnesia 30 Ml Oral.Susp PO 30 ml DAILY PRN Administration Constipation Methadone HCl 110 mg 10/18/20 06:30 10/18/20 06:35 Methadone Hcl 20 Mg/2 Ml Oral.Conc PO 110 mg DAILY@0630 BARAK Administration Multivitamins 1 tab 10/13/20 09:00 10/18/20 09:10 B-Complex With Vitamin C Tablet PO 1 tab DAILY BARAK Administration Multivitamins/Vitamin C 1 tab 10/13/20 09:00 10/18/20 09:11 Multivitamin Tablet PO 1 tab DAILY BARAK Administration Nicotine 21 mg 10/08/20 11:33 10/17/20 08:36 Nicotine 21 Mg Patch.Td24 TRANSDERMA 21 mg DAILY PRN Administration Smoking cessation Nicotine Polacrilex 4 mg 10/11/20 16:57 10/18/20 09:11 Nicotine Polacrilex 2 Mg Gum BUCCAL 4 mg Q1H PRN Administration Nicotine Cravings Olanzapine 10 mg 10/09/20 09:19 10/17/20 08:36 Olanzapine 10 Mg Tablet PO 10 mg BID PRN Administration anxiety Pharmacy Consult 1 each 10/07/20 19:45 Consult Rx Perform Med Rec MISCELLANE ONCE PRN Consult order Trazodone HCl 50 mg 10/10/20 17:57 Trazodone Hcl 50 Mg Tablet PO BEDTIME PRN Insomnia Vitamin D 10 mcg 10/13/20 09:00 10/18/20 09:11 Cholecalciferol (Vitamin D3) 10 Mcg Tablet PO 10 mcg DAILY BARAK Administration Allergies Allergies Allergy/AdvReac Type Severity Reaction Status Date / Time No Known Allergies Allergy Verified 10/07/20 20:14 Assessment & Plan Assessment & Plan (1) Bipolar I disorder: Status: Acute Code(s): F31.9 - Bipolar disorder, unspecified Assessment and Plan: Pt continues to present with oversedation and breakthrough lability along with poor overall modulation of affect. Reports insomnia today. Plan: Continue Klonopin 2 mg a.m. 2.5 mg HS Continue Adderall to 30 mg a.m. Doxepin 100 mg hs Hold Trazodone MVI, B Complex, Vit D, Ensure ordered as discussed with pt-she is concerned about her general health habits Gembirozil initiated for elevated triglycerides Continue [place] 600 mg bid, Gabapentin 400 mg tid Decrease Methadone to 105 on 10/19/20 and 100 mg on 10/20/20 Continue Haldol 10 mg bid. (2) PTSD (post-traumatic stress disorder): Status: Acute Code(s): F43.10 - Post-traumatic stress disorder, unspecified (3) Opioid use disorder, moderate, on maintenance therapy, dependence: Status: Acute Code(s): F11.20 - Opioid dependence, uncomplicated Greater than 50% of the session was spent on counseling and/or coordination of care Reason for contiued inpatient stay Substantial Risk for: harm to self, harm to others, inability to function and rapid decompensation
[2020-10-18] MEDS: Nicotine 21 MG PATCH.TD24 TRANSDERMA (14:19)
[2020-10-18] MEDS: clonazePAM 0.5 MG TABLET 2.5 MG PO (16:40)
[2020-10-18 17:48] VITALS: BP 133/79; PULSE 90; RESP 18; TEMP 36.2; O2SAT 96
[2020-10-18 20:17] VITALS: BP 120/72; PULSE 105
[2020-10-18] MEDS: cloNIDine HCL 0.2 MG TABLET PO (20:17)
[2020-10-18] MEDS: Doxepin HCl 25 MG CAPSULE 100 MG PO (20:17)
--- NOTE | 2020-10-19 | ECG_ITS ---
Test Reason : PROLONGED QTC Blood Pressure : / mmHG Vent. Rate : 091 BPM Atrial Rate : 091 BPM P-R Int : 226 ms QRS Dur : 080 ms QT Int : 380 ms P-R-T Axes : 043 016 030 degrees QTc Int : 467 ms Sinus rhythm with 1st degree A-V block Otherwise normal ECG When compared with ECG of 12-OCT-2020 09:38, ME interval has increased Nonspecific T wave abnormality is no longer Present Referred By: Elmira Lozada Electronically Signed By:ROSA LOPEZ
[2020-10-19] MEDS: clonazePAM 1 MG TABLET 2 MG PO (06:04)
[2020-10-19] MEDS: methADONE HCl 20 MG/2 ML ORAL.CONC 105 MG PO (06:05)
[2020-10-19 07:00] VITALS: BMI 33.2
[2020-10-19] MEDS: methADONE HCl 20 MG/2 ML ORAL.CONC 100 MG PO (08:34)
[2020-10-19] MEDS: gemfibroziL 600 MG TABLET PO ×2 (08:35→16:25)
[2020-10-19] MEDS: Gabapentin 400 MG CAPSULE PO ×2 (08:35→14:36)
[2020-10-19] MEDS: Lithium Carbonate 300 MG TABLET 600 MG PO (08:35)
[2020-10-19] MEDS: Cholecalciferol (Vitamin D3) 10 MCG TABLET PO (08:36)
[2020-10-19] MEDS: Multivitamin TABLET 1 TAB PO (08:36)
[2020-10-19] MEDS: HaloperidoL 5 MG TABLET 10 MG PO (08:36)
[2020-10-19] MEDS: Nicotine Polacrilex 2 MG GUM 4 MG BUCCAL ×2 (08:36→14:36)
[2020-10-19] MEDS: Nicotine 21 MG PATCH.TD24 TRANSDERMA (14:36)
[2020-10-19] MEDS: clonazePAM 1 MG TABLET PO (16:25)
[2020-10-19 16:55] LABS: Alanine Aminotransferase 61 U/L (0-31); Albumin Level 4.4 g/dL (3.5-5.0); Alkaline Phosphatase 96 U/L (39-117); Anion Gap 13 (12-20); Aspartate Amino Transferase 40 U/L (5-31); Bilirubin Total 0.3 mg/dL (0.0-1.0); Blood Urea Nitrogen 20 mg/dL (9-16); Calcium 9.9 mg/dL (8.4-10.2); Carbon Dioxide 26 mmol/L (22-29); Chloride 105 mmol/L (96-108); Creatinine Clr Calc Pharmacy 99.5; Estimated Glomerular Filt Rate > 60; Glucose Random 115 mg/dL (60-115); Potassium 4.2 mmol/L (3.3-5.1); Sodium 140 mmol/L (135-145); Total Protein 7.3 g/dL (6.5-8.0)
[2020-10-19 18:28] LABS: Magnesium 2.3 mg/dL (1.6-2.6)
--- NOTE | 2020-10-19 19:17 | P.DS_ITS ---
DS: Providers Provider Date of Service: 10/19/20 Date of admission: 10/10/20 17:52 Date of discharge: 10/19/20 Primary care physician: Josafat Physician Admitting clinician: Elmira Lozada Attending physician on admission: Ferny Martinez Consults: 10/10/20 17:57 Consult to Hospitalist Routine Consulting Provider: Hospitalist Reason For Exam: admission 10/19/20 10:21 Addiction Medicine Routine Consulting Provider: Lynne Shafer Reason for consultation: Methadone tapering 130-100. ? Appropriate agent for pt. Has provider been notified: No Attending physician on discharge: Ferny Martinez Discharging clinician: Elmira Lozada DS: Diagnosis Discharge Diagnosis (1) Bipolar I disorder: Status: Acute (2) PTSD (post-traumatic stress disorder): Status: Acute (3) Opioid use disorder, moderate, on maintenance therapy, dependence: Status: Acute DS: Medications Discharge Medications Home Medications: Home Medications Medication Instructions Recorded Confirmed Adderall 40 mg PO DAILY 10/07/20 10/07/20 clonidine 0.2 mg PO BEDTIME 10/07/20 10/07/20 doxepin 150 mg BEDTIME 10/07/20 10/07/20 gabapentin 800 mg PO TID 10/07/20 10/07/20 lithium carbonate 750 mg PO BID 10/07/20 10/07/20 methadone 10 mg/mL oral concentrate 135 mg PO DAILY 10/08/20 10/08/20 Previous Rx's Medication Instructions Recorded nitrofurantoin 100 mg PO Q12H 5 Days #10 cap 10/09/20 monohydrate/macrocrystals 100 mg capsule (Macrobid) Mental Status Exam Mental Status Exam Patient Appearance: Disheveled Patient Orientation: Person, Place and Situation Level of Consciousness: Awake, Drowsy, Sedated, Alert and Lethargic Patient Behavior: Appropriate, Talkative, Cooperative, Asleep, Sedated, Fatigued and Good Eye Contact Mood Description: Labile and Flat Affect Description: Labile and Flat Patient Cognition Impaired: No Ability to Follow Directions: Good Speech Pattern: Spontaneous Speech Memory Description: Intact Hallucinations: None Delusions: Not Present Thought Process: Slowed Thinking Thought Content: positive for [place] and positive for Suicidal Ideation (denies) Depressive Symptoms: Insomnia, Increased Irritability, Difficulty Sleeping, Sleeping More Than Usual, Increased Fatigue, Thoughts of /Suicide (denies) and Loss of Energy Judgement: Poor Data Data Completed and Pending Completed studies during hospitalization [Text1]: 10/12/20 10/12/20 10/13/20 08:12 20:57 08:26 Sodium 139 Potassium 4.8 Chloride 107 Carbon Dioxide 24 Anion Gap 13 BUN 10 Creatinine 0.72 Estim Creat Clear Calc 105.1 Estimated GFR > 60 Random Glucose 95 Calcium 9.6 Magnesium Total Bilirubin 0.3 AST 82 H ALT 120 H Alkaline Phosphatase 99 Ammonia Total Protein 7.0 Albumin 4.1 Amylase 69 Lipase 29 Vitamin B12 288 Folate 9.9 Urine Test NEGATIVE [place] 10/13/20 10/13/20 10/19/20 08:26 08:26 16:19 Sodium 140 Potassium 4.2 Chloride 105 Carbon Dioxide 26 Anion Gap 13 BUN 20 H D Creatinine 0.80 Estim Creat Clear Calc 99.5 Estimated GFR > 60 Random Glucose 115 Calcium 9.9 Magnesium 2.3 Total Bilirubin 0.3 AST 40 H D ALT 61 H Alkaline Phosphatase 96 Ammonia 33 Total Protein 7.3 Albumin 4.4 Amylase Lipase Vitamin B12 Folate Urine Test [place] 0.82 10/07/20 Unknown Urine clean catch - Clean Catch Midstream Urine Culture - Final Escherichia coli DS: Summary Hospital Course Hospital Course: Pt admitted on a conditional voluntary for managment of bipolar mood disorder, opiate dependence, PTSD. Upon admission, pt presented with lability of mood, oversedation, drug seeking behavior and with poor modulation of her mood and affect. Several medication dosages were decreased including Klonopin 2 mg bid to 1 mg bid, Adderall- 40 mg daily to 10 mg daily, Doxepin- 150 mg daily to being held, Gabapentin 800 mg tid to 400 mg tid, [place] 750 mg bid to 600 mg bid. Haldol was added for mood and thought process clarity at 10 mg bid. Methadone, initially at 130 mg daily was decreased by 5 mg daily-to todays dose of 105 mg. Pt, although with continued breakthrough of lability, was clearer and beginning to improve. Today, she reported to the team she took two doses of 105 mg Methadone-one at 630 one at 800. She was sedate, and this symptom was attributed to re-starting doxepin initially due to insomnia before the added dosing of Methadone was known. When informed of pt haven taken two doses of Methadone, further evaluation was completed. Pt, although sedate, awakened immediately, was alert, oriented, clear, participated in discussion and reported feeling no sx except sedation. VA 97.2, 107/61, 95%, 16, 85. Upon objective eval and consultation with , [facility] Hospitalist, EKG was with QT of [address] of [address]81[address] Garcia of cardiology was consulted who recommended telemetry admission for monitoring and discontinuation of agents possibly contributing to elevations of QTc. CMP indicated BUN 20, AST of 40 a change from 82 on 10/13; ALT 61 a change from 120 on 10/13. CBC, MG pending. Pt to be transferred to [facility]. Per pt request, I discussed the above with her mother, Gloria Patel at [phone]. Time spent discussing smoking cessation with patient: 3 to 10 minutes Status at Discharge Cognitive/behavioral status at discharge: Sedate, alert, labile at times Functional status at discharge: independent ambulation Overall status at discharge: patient is not back to baseline Time Spent with Patient Time attestation: Total time spent providing and/or coordinating discharge services: 60 Time spent: Greater than 30 minutes Discharge Plan Discharge Patient Disposition: [facility] Discharge Diagnosis: Bipolar I Disorder PTSD Opiate Use Disorder-on maintenance therapy (Methadone) Referrals: Physician,None [Primary Care Provider] - 2 days (Your PCP) Discharge Orders: Discharge Order (Routine); Ordered 10/19/20 Ordered By: Celia Natarajan Activity on Discharge: No Restrictions Stand Alone Forms: Patient Portal Discharge page Print Language: [place]i Care Plan Goals: 1. maintain mood 2. no si/hi Health Concerns: telemetry assessment Plan of Treatment: transfer to medical floor for further cardiac monitoring Assessment: transferring to medical floor Patient Instructions: Urinary Tract Infection in Women (ED), Depression (ED), Suicide Prevention (ED) Discharge Date/Time: 10/19/20 21:11
[2020-10-19 19:51] LABS: MANUAL DIFF FLAG NO
[2020-10-19 19:59] LABS: Basophils Absolute Auto 0.1 X10*3/uL (0.0-0.2); Basophils Percent Auto 0.5 % (0-2); Eosinophils Absolute Auto 0.5 X10*3/uL (0.0-0.4); Eosinophils Percent Auto 4.3 % (0-4); Hematocrit 34.2 % (37-47); Hemoglobin 11.3 g/dl (12.0-16.0); Imm Gran Abs Auto 0.34 X10*3/uL (0.00-0.03); Imm Gran Pct Auto 2.9 % (0.0-0.4); Lymphocytes Absolute Auto 2.6 X10*3/uL (1.2-4.9); Lymphocytes Percent Auto 21.9 % (20-40); Mean Corpuscular Volume 87.9 fL (80-98); Mean Platelet Volume 9.6 fL (9.4-12.3); Monocytes Absolute Auto 0.9 X10*3/uL (0.1-1.2); Monocytes Percent Auto 7.6 % (2-11); Neutrophils Absolute Auto 7.4 X10*3/uL (2.0-8.3); Neutrophils Percent Auto 62.8 % (45-73); Platelet Count 386 X10*3/uL (160-400); Red Blood Count 3.89 X10*6/uL (4.20-5.50); Red Cell Distribution Width 13.8 % (11.0-16.0); White Blood Count 11.8 X10*3/uL (4.8-10.8)
[2020-10-19 20:22] LABS: Magnesium 2.1 mg/dL (1.6-2.6)
== END 2020-10-19 21:11 | disposition short-term general hospital (02) | DRG 753 ==
LOC: HO.ED 10-09 13:59 → HO.PM5 10-10 18:03
PROVIDERS: Nurse Practitioner Family; Physician Assistant Medical; Psychiatry & Neurology Psychiatry; Admitting Provider Psychiatry & Neurology Psychiatry; Emergency Provider Internal Medicine; Visit Provider Clinical Nurse Specialist Psychiatric/Mental Health, Adult
DX: F31.9 Bipolar disorder, unspecified (principal); R45.851 Suicidal ideations; F11.20 Opioid dependence, uncomplicated; F43.10 Post-traumatic stress disorder, unspecified; B96.20 Unspecified Escherichia coli [E. coli] as the cause of diseases classified elsewhere; N39.0 Urinary tract infection, site not specified; F17.210 Nicotine dependence, cigarettes, uncomplicated; Z71.6 Tobacco abuse counseling; Z20.822 Contact with and (suspected) exposure to COVID-19; Z79.899 Other long term (current) drug therapy
CPT/HCPCS: 0241U; 36415; 80048; 80053; 80061; 80076; 80143; 80178; 80179; 80307; 81001; 81025; 82077; 82140; 82150; 82607; 82746; 83036; 83690; 83735; 84443; 85025; 87086; 87088; 87186; 93005; 96372; 99285; J2060

== ENCOUNTER 2020-10-19 21:22 | Observation (INO) | payer OTHER, SELFPAY ==
[2020-10-19 21:37] VITALS: BP 116/70; PULSE 102; RESP 19; O2SAT 96
[2020-10-19] MEDS: clonazePAM 1 MG TABLET PO (23:12)
[2020-10-19] MEDS: Lithium Carbonate 300 MG TABLET 600 MG PO (23:32)
[2020-10-20] VITALS: BP 118/58; PULSE 90; RESP 18; TEMP 36.6; O2SAT 95
--- NOTE | 2020-10-20 00:30 | P.HPHOSP_ITS ---
History of Present Illness Date of Service: 10/20/20 Chief Complaint: Prolonged QTC 35-year-old female with history of bipolar, PTSD, ADHD, anxiety, depression, opioid use disorder, personality disorder, who was transferred from inpatient Psychiatry because of prolonged QTC. History is from patient and from [facility] medical records. Patient was admitted to inpatient Psychiatry here on 10/11/2020, where she was treated for mood lability, irritability and agitation requiring restraints. She was being treated by Psychiatry, but unfortunately yesterday (10/19/20) she received a double dose of her home medication methadone. An EKG was performed, and her QTC was found to be elevated at 681. Subsequently, Cardiology was consulted, and it was recommended that the patient be transferred to telemetry floor, and monitor overnight, with Cardiology consult. By the time I arrived to the patient's room, she endorses that she is very anxious, and requests if she can receive her doxepin, along with her Klonopin dose. Otherwise, she denies chest pain, shortness of breath, fever, chills, nausea, vomiting. Review of Systems Constitutional: Constitutional: Denies chills, Denies fatigue, Denies fever(s), Denies headache(s), Denies weakness and Denies weight loss Eyes: Eyes: Denies blurry vision, Denies change in vision, Denies diplopia and Denies loss of vision ENT: Denies dysphagia, Denies vertigo, Denies dizziness, Denies headache(s), Denies hearing loss, Denies lip swelling and Denies sore throat Cardiovascular: Cardiovascular: Denies chest pain, Denies leg edema, Denies lightheadedness, Denies palpitations and Denies dyspnea Respiratory: Respiratory: Denies no additional respiratory complaints, Denies cough, Denies dyspnea and Denies wheezing Gastrointestinal: Gastrointestinal: Denies coffee ground emesis, Denies constipation, Denies dysphagia, Denies diarrhea, Denies nausea and Denies vomiting Genitourinary: Genitourinary: Denies dysuria Musculoskeletal: Musculoskeletal: Denies arthralgias, Denies muscle weakness, Denies numbness and Denies tingling Integumentary/Breasts: Skin/Breast: Denies bleeding lesions, Denies new lesions and Denies rash Neurologic: Denies vertigo, Denies dizziness, Denies headache(s), Denies loss of vision, Denies numbness, Denies tingling and Denies weakness Psychiatric: Psychiatric: Reports anxiety and Denies depression Endocrine: Endocrine: Denies cold intolerance, Denies fatigue, Denies heat intolerance and Denies palpitations Hematologic/Lymphatic: Hematologic/Lymphatic: Denies easy bleeding, Denies easy bruising and Denies lymphadenopathy Allergic/Immunologic: Allergic/Immunologic: Denies lip swelling and Denies wheezing PMFSH Medical History ADHD Anxiety Bipolar I disorder Depression Hepatitis C Opioid use disorder, moderate, on maintenance therapy, dependence Personality disorder PTSD (post-traumatic stress disorder) Family history: reviewed and not pertinent Social History Household Members: Unknown / Unable to assess Housing: Unknown / Unable to assess Unable to assess alcohol history related to: Unable to respond Patient Tobacco Use Status: Current everyday Tobacco user Tobacco use type: Cigarette e-Cigarette/Vaping Use: Currently Using Substance Use Type: Crack/Cocaine and Sedatives Currently Displaying Signs/Symptoms of Drug Intoxication Withdrawal: No Advance Directives: No Advance Directives Information Provided: No Do you have thoughts of harming others: None Do you have a plan to hurt others: No Plan service: No Sexual orientation: Straight/Heterosexual Meds Allergies Allergy/AdvReac Type Severity Reaction Status Date / Time No Known Allergies Allergy Verified 10/07/20 20:14 Active Medications: Current Medications Generic Name Dose Route Start Last Admin Trade Name Freq PRN Reason Stop Dose Admin Acetaminophen 650 mg 10/19/20 21:33 Acetaminophen 325 Mg Tablet PO Q6H PRN Pain, Mild (Pain Scale 1-3) Clonazepam 1 mg 10/20/20 06:30 Clonazepam 1 Mg Tablet PO 0630 BARAK Clonazepam 1 mg 10/20/20 00:28 Clonazepam 1 Mg Tablet PO 10/20/20 00:29 ONCE ONE Gemfibrozil 600 mg 10/20/20 07:30 Gemfibrozil 600 Mg Tablet PO BIDAC BARAK [place] Carbonate 600 mg 10/20/20 09:00 10/19/20 23:32 [place] Carbonate 300 Mg Tablet PO 600 mg BID BARAK Administration Multivitamins 1 tab 10/20/20 09:00 B-Complex With Vitamin C Tablet PO DAILY BARAK Multivitamins/Vitamin C 1 tab 10/20/20 09:00 Multivitamin Tablet PO DAILY [facility] Nicotine 21 mg 10/19/20 22:49 Nicotine 21 Mg Patch.[id number] TRANSDERMA DAILY PRN Smoking cessation Nicotine Polacrilex 4 mg 10/19/20 22:50 Nicotine Polacrilex 2 Mg Gum BUCCAL Q1H PRN Nicotine Cravings Sodium Chloride 3 ml 10/20/20 00:00 10/19/20 23:12 0.9 % Sodium Chloride Flush 3 Ml Syringe IVFLUSH Not Given QSHIFT [facility] Vitamin D 10 mcg 10/20/20 09:00 Cholecalciferol (Vitamin D3) 10 Mcg Tablet PO DAILY [facility] Home Medications Medication Instructions Recorded Confirmed Last Taken Type Adderall 40 mg PO DAILY 10/07/20 10/19/20 10/06/20 History clonidine 0.2 mg PO BEDTIME 10/07/20 10/19/20 1 Day Ago History ~10/06/20 doxepin 150 mg BEDTIME 10/07/20 10/19/20 10/06/20 History gabapentin 800 mg PO TID 10/07/20 10/19/20 10/06/20 History methadone 10 mg/mL oral concentrate 100 mg PO DAILY 10/08/20 10/19/20 Unknown History lithium carbonate 600 mg capsule 600 mg PO BID 10/19/20 10/19/20 10/19/20 History olanzapine 10 mg tablet 10 mg PO BID PRN 10/19/20 10/19/20 Unknown History Physical Exam Vital Signs and Narrative: Vital Signs: Last Vital Signs Temp 97.9 F 10/20/20 00:00 Pulse 90 10/20/20 00:00 Resp 18 10/20/20 00:00 BP 118/58 L 10/20/20 00:00 Pulse Ox 95 10/20/20 00:00 Const: General: no acute distress, well developed and alert HENMT: Face and sinus: Yes normal facial exam and Yes face symmetric Mouth: Normal oral and palatal mucosa present and moist mucous membranes Throat: Yes posterior oropharynx normal and Yes tonsils normal Eyes: General: appearance normal, both eyes and all related structures Alignment and Position: alignment normal and position normal Sclerae: sclerae normal Pupils: Equal, round and reactive pupils present EOM: EOMs intact bilaterally Neck: Yes normal visual inspection, Yes full ROM and Yes no lymphadenopathy Lymphatic: no lymphadenopathy noted Resp: Effort & Inspection: normal respiratory effort and able to speak in complete sentences Auscultation: clear to auscultation bilaterally, no crackles, no rales, no rhonchi and no wheezes Cardio: Rate: regular rate Rhythm: regular rhythm Heart sounds: S1 normal heart sound present, S2 normal heart sound present, no murmurs and no rubs GI: Inspection: No distended Palpation (GI): Soft to palpation and nontender Percussion: No tympanic to percussion Auscultation: normal bowel sounds Skin: Rashes: no rashes Trauma: no lacerations or abrasions Wounds: no wounds Neuro: Cranial nerves: Yes CN's II-XII intact bilaterally, Yes Equal, round and reactive pupils present and Yes Bilaterally intact EOM present Extrem: General: Yes full ROM and Yes no pedal edema Psych: Appearance: grossly normal Mental Status: mental status grossly normal Speech and movement: Slowed speech present (Psych) (Slightly delayed speech noted) Affect: normal affect Thought process: Normal thought process present Results ECG Interpretation: QTC found to be 467 Assessment and Plan (1) Abnormal QT interval present on electrocardiogram: Status: Acute (2) PTSD (post-traumatic stress disorder): Status: Acute (3) Bipolar I disorder: Status: Acute (4) Depression: Status: Acute (5) Opioid use disorder, moderate, on maintenance therapy, dependence: Status: Acute Abnormal QT interval present on electrocardiogram: -QTC was found to be elevated at 681 (after the patient received an extra dose of methadone) -when I entered the patient's room, she requested that I repeat the EKG. Repeat EKG on 10/20/2020 at around 12:30 am revealed a QTC of 467. -because QTC is normal again, I did agree to give the patient's night dose of doxepin (1 time only) -otherwise, cardiology consult placed -I have not restarted the patient's other QTC prolonging medications yet (defer to Cardiology morning team) -EKG for the morning ordered PTSD/ bipolar/ anxiety/ depression: -continue home lithium -holding home olanzapine, trazodone, Haldol, and any other QTC prolonging medications for now -morning team can restart if appropriate -Likely patient can be transferred back to inpatient psychiatry Opioid use disorder, on methadone: -patient was accidentally given extra dose of methadone, and subsequently her QTC was found to be prolonged yesterday -repeat EKG today does show that the QTC is normal again -I have not restarted the patient's home methadone, will defer to the morning team/Cardiology for their opinion FEN: Regular Diet CODE STATUS: FULL CODE DISPO: Admit to Observation Quality Stroke Does the patient have a stroke diagnosis?: No VTE Prior VTE?: No VTE Risk Level:: Medical - low VTE Device Contraindication: N/A - Device Ordered VTE Drug Contraindication: Treatment Not Indicated
[2020-10-20] MEDS: Doxepin HCl 25 MG CAPSULE 150 MG PO (00:53)
[2020-10-20] MEDS: clonazePAM 1 MG TABLET PO ×2 (00:53→16:32)
[2020-10-20 03:39] VITALS: BP 115/63; PULSE 93; RESP 18; TEMP 36.2; O2SAT 95
[2020-10-20 08:00] VITALS: BP 126/76; PULSE 85; RESP 20; TEMP 36.4; O2SAT 97
[2020-10-20 08:40] LABS: MANUAL DIFF FLAG NO
[2020-10-20 08:45] LABS: Basophils Percent Auto 0.4 % (0-2); Eosinophils Absolute Auto 0.5 X10*3/uL (0.0-0.4); Eosinophils Percent Auto 4.9 % (0-4); Hematocrit 34.1 % (37-47); Hemoglobin 11.3 g/dl (12.0-16.0); Imm Gran Abs Auto 0.28 X10*3/uL (0.00-0.03); Lymphocytes Absolute Auto 2.3 X10*3/uL (1.2-4.9); Lymphocytes Percent Auto 25.1 % (20-40); Mean Corpuscular HGB Conc 33.1 g/dl (31.0-35.0); Mean Corpuscular Hemoglobin 29.2 pg (27.0-33.0); Mean Corpuscular Volume 88.1 fL (80-98); Mean Platelet Volume 9.5 fL (9.4-12.3); Monocytes Absolute Auto 0.8 X10*3/uL (0.1-1.2); Monocytes Percent Auto 8.3 % (2-11); Neutrophils Absolute Auto 5.4 X10*3/uL (2.0-8.3); Neutrophils Percent Auto 58.3 % (45-73); Platelet Count 351 X10*3/uL (160-400); Red Blood Count 3.87 X10*6/uL (4.20-5.50); Red Cell Distribution Width 13.8 % (11.0-16.0); White Blood Count 9.3 X10*3/uL (4.8-10.8)
[2020-10-20 09:06] LABS: Anion Gap 10 (12-20); Blood Urea Nitrogen 15 mg/dL (9-16); Calcium 9.9 mg/dL (8.4-10.2); Carbon Dioxide 28 mmol/L (22-29); Chloride 106 mmol/L (96-108); Estimated Glomerular Filt Rate > 60; Glucose Random 83 mg/dL (60-115); Potassium 4.4 mmol/L (3.3-5.1); Sodium 140 mmol/L (135-145)
--- NOTE | 2020-10-20 10:03 | MHC.CM.PN ---
CM met with Patient at bedside, along with her Sitter. Patient comes from [facility] and it appears likely that she may return there, once medically stable. FRANNY has initiated and will follow for dc planning. FARHEEN addressed with Patient and original has been given to her and a copy has been placed on the chart.Patient lives in a Intermediate,she is functionally independent and she receives her community Methadone from [facility] in [place].Patient has no PCP.
--- NOTE | 2020-10-20 11:26 | P.CONCA_ITS ---
History of Present Illness History of Present Illness Date of Service: 10/20/20 Requesting physician: Christina Uriarte Chief complaint: Prolonged QTC Narrative: I was consulted to see Kylee in cardiology consultation today as was reported on the EKG yesterday evening to have markedly prolonged QTC interval by the midlevel in psychiatry. I do not see the copy of that EKG in the chart, have try to trace EKG without any success. Repeat EKG after midnight last night shows mild QTC prolongation at 467 milliseconds which is similar to her EKG on admission. She had received double the dose of methadone yesterday by mistake as as a medication error. She has been also receiving olanzapine, Haldol as well as doxepin. Patient has multiple psychiatric issues and is requesting her methadone which has been withheld yesterday appropriately. Her Haldol as well as olanzapine have also been withheld. She did get doxepin last night as she was requesting it. She is on multiple other psychiatric medications. No cardiac history. No prior history of syncope. No family history of premature sudden cardiac that. Review of Systems Review of Systems: Yes all other systems are reviewed and are negative Constitutional: Constitutional: Reports no additional constitutional complaints Cardiovascular: Cardiovascular: Reports no additional cardiovascular complaints Respiratory: Respiratory: Reports no additional respiratory complaints Gastrointestinal: Gastrointestinal: Reports no additional gastrointestinal complaints Genitourinary: Genitourinary: Reports no additional female genitourinary complaints Musculoskeletal: Musculoskeletal: Reports no additional musculoskeletal complaints Integumentary/Breasts: Skin/Breast: Reports system reviewed and no additional complaints, except as docu Neurologic: Reports system reviewed and no additional complaints, except as documented [facility] Past Medical History Medical History ADHD Anxiety Bipolar I disorder Depression Hepatitis C Opioid use disorder, moderate, on maintenance therapy, dependence Personality disorder PTSD (post-traumatic stress disorder) Family History Family history: reviewed and not pertinent Social History Social History Household Members: Unknown / Unable to assess Housing: Unknown / Unable to assess Unable to assess alcohol history related to: Unable to respond Patient Tobacco Use Status: Current everyday Tobacco user Tobacco use type: Cigarette e-Cigarette/Vaping Use: Currently Using Substance Use Type: Crack/Cocaine and Sedatives Currently Displaying Signs/Symptoms of Drug Intoxication Withdrawal: No Advance Directives: No Advance Directives Information Provided: No Do you have thoughts of harming others: None Do you have a plan to hurt others: No Plan service: No Current occupational status: disabled Sexual orientation: Straight/Heterosexual Meds Allergies Allergy/AdvReac Type Severity Reaction Status Date / Time No Known Allergies Allergy Verified 10/07/20 20:14 Active Medications: Current Medications Generic Name Dose Route Start Last Admin Trade Name Freleilani PRN Reason Stop Dose Admin Acetaminophen 650 mg 10/19/20 21:33 Acetaminophen 325 Mg Tablet PO Q6H PRN Pain, Mild (Pain Scale 1-3) Clonazepam 1 mg 10/20/20 06:30 10/20/20 10:13 Clonazepam 1 Mg Tablet PO Not Given 0630 [facility] Gemfibrozil 600 mg 10/20/20 07:30 10/20/20 10:13 Gemfibrozil 600 Mg Tablet PO Not Given BIDAC [facility] [place] Carbonate 600 mg 10/20/20 09:00 10/20/20 10:14 [place] Carbonate 300 Mg Tablet PO Not Given BID [facility] Methadone HCl 100 mg 10/20/20 11:15 Methadone Hcl 20 Mg/2 Ml Oral.Conc PO DAILY [facility] Multivitamins 1 tab 10/20/20 09:00 10/20/20 10:13 B-Complex With Vitamin C Tablet PO Not Given DAILY [facility] Multivitamins/Vitamin C 1 tab 10/20/20 09:00 10/20/20 10:14 Multivitamin Tablet PO Not Given DAILY [facility] Nicotine 21 mg 10/19/20 22:49 Nicotine 21 Mg Patch.Td24 TRANSDERMA DAILY PRN Smoking cessation Nicotine Polacrilex 4 mg 10/19/20 22:50 Nicotine Polacrilex 2 Mg Gum BUCCAL Q1H PRN Nicotine Cravings Sodium Chloride 3 ml 10/20/20 00:00 10/20/20 10:13 0.9 % Sodium Chloride Flush 3 Ml Syringe IVFLUSH Not Given QSHIFT [facility] Vitamin D 10 mcg 10/20/20 09:00 10/20/20 10:13 Cholecalciferol (Vitamin D3) 10 Mcg Tablet PO Not Given DAILY [facility] Home Medications Medication Instructions Recorded Confirmed Last Taken Type Adderall 40 mg PO DAILY 10/07/20 10/19/20 10/06/20 History clonidine 0.2 mg PO BEDTIME 10/07/20 10/19/20 1 Day Ago History ~10/06/20 doxepin 150 mg BEDTIME 10/07/20 10/19/20 10/06/20 History gabapentin 800 mg PO TID 10/07/20 10/19/20 10/06/20 History methadone 10 mg/mL oral concentrate 100 mg PO DAILY 10/08/20 10/19/20 Unknown History lithium carbonate 600 mg capsule 600 mg PO BID 10/19/20 10/19/20 10/19/20 History olanzapine 10 mg tablet 10 mg PO BID PRN 10/19/20 10/19/20 Unknown History Physical Exam Vital Signs: Vital Signs: Last Vital Signs Temp 97.6 F 10/20/20 08:00 Pulse 85 10/20/20 08:00 Resp 20 10/20/20 08:00 BP 126/76 10/20/20 08:00 Pulse Ox 97 10/20/20 08:00 Const: General: cooperative, comfortable, no acute distress, alert and awake Nutritional Appearance: obese Orientation/consciousness: patient oriented x3 HENMT: Head: Yes normocephalic and Yes atraumatic Neck: Neck: Yes trachea midline, Yes supple and Yes no JVD Resp: Effort & Inspection: normal respiratory effort Auscultation: clear to auscultation bilaterally Cardio: Jugular venous distension: no JVD Palpation: normal PMI Rate: regular rate Rhythm: regular rhythm Heart sounds: S1 normal heart sound present, S2 normal heart sound present, no click, no gallops, no murmurs and no rubs GI: Auscultation: normal bowel sounds Skin: General skin exam: no rashes or lesions noted Neuro: General: patient oriented x3 and no focal motor deficits Extrem: General: Yes no clubbing, cyanosis or edema Results Labs and Meds Result diagrams: 10/20/20 08:21 10/20/20 08:21 Lab results: Laboratory Results - last 24 hr 10/20/20 10/20/20 08:21 08:21 WBC 9.3 RBC 3.87 L Hgb 11.3 L Hct 34.1 L MCV 88.1 MCH 29.2 MCHC 33.1 RDW 13.8 Plt Count 351 MPV 9.5 Immature Gran % (Auto) 3.0 H Neut % (Auto) 58.3 Lymph % (Auto) 25.1 [place] % (Auto) 8.3 Eos % (Auto) 4.9 H Baso % (Auto) 0.4 Lymph # (Auto) 2.3 [place] # (Auto) 0.8 Eos # (Auto) 0.5 H Baso # (Auto) 0.0 Abs Immat Gran (auto) 0.28 H Absolute Neuts (auto) 5.4 Absolute Nucleated RBC 0.000 Nucleated RBC % (auto) 0.0 Sodium 140 Potassium 4.4 Chloride 106 Carbon Dioxide 28 Anion Gap 10 L BUN 15 Creatinine 0.69 Estim Creat Clear Calc TNP Estimated GFR > 60 Random Glucose 83 Calcium 9.9 EKG from this morning shows normal sinus rhythm with QTC interval of 467 millise conds Assessment and Plan (1) Abnormal QT interval present on electrocardiogram: Status: Acute Reported marked QTC prolongation yesterday with normal electrolytes. Cannot trace EKG in the patient's medical chart. The 2 EKGs that I reviewed do not show any significant QTC prolongation only mildly prolonged, last night EKG at 467 milliseconds. I think patient can be restarted on methadone as she was taking this on admission and a QTC interval was within acceptable limits. She was also taking other medications at home however her medicine reconciliation is difficult to obtain from her. She can continue doxepin which she got last night, would repeat EKG this morning. In future if other QT prolonging medications had to be started for her psychiatric condition would start the me dications and follow-up with EKG to make sure that the QTC is less than 500 milliseconds prior to escalating dose and/or adding more medications. Will sign of the case. Thank you for allowing us to partake in the care Procedures Date of Service Date of Service: 10/20/20
[2020-10-20 11:38] VITALS: BP 95/53; PULSE 87; RESP 20; TEMP 36.5; O2SAT 95
[2020-10-20] MEDS: methADONE HCl 20 MG/2 ML ORAL.CONC 100 MG PO (12:29)
[2020-10-20 14:59] VITALS: PULSE 74; RESP 18; TEMP 36.4; O2SAT 94
[2020-10-20 15:02] VITALS: BP 96/48
--- NOTE | 2020-10-20 15:18 | ECG_ITS ---
Test Reason : EXTRA DOSE METHADONE Blood Pressure : / mmHG Vent. Rate : 078 BPM Atrial Rate : 078 BPM P-R Int : 186 ms QRS Dur : 078 ms QT Int : 306 ms P-R-T Axes : 049 040 043 degrees QTc Int : 348 ms Normal sinus rhythm Nonspecific T wave abnormality Abnormal ECG When compared with ECG of 20-OCT-2020 00:19, IA interval has decreased QT has shortened Referred By: Christina Uriarte Electronically Signed By:ROSA LOPEZ
--- NOTE | 2020-10-20 15:30 | P.DS_ITS ---
DS: Providers Provider Date of Service: 10/20/20 Date of admission: 10/19/20 21:22 Primary care physician: Unknown Physician Consults: 10/19/20 21:36 Consult to Cardiology Routine Consulting Provider: [facility] Reason for consultation: Prolonged QTC after Methadone Has provider been notified: No 10/20/20 11:59 BHN [Consult to Crisis] Stat Reason for consultation: Need for Readmission to [facility] Today STAT Has provider been notified: Yes 10/20/20 12:01 Consult to Care Team Stat Comment: Reason for consultation: Needed for Readmit to [facility] today STAT Has provider been notified: Yes DS: Diagnosis Discharge Diagnosis (1) Abnormal QT interval present on electrocardiogram: Status: Acute DS: Summary Hospital Course Hospital Course: History of presenting illness Chief Complaint: Prolonged QTC 35-year-old female with history of bipolar, PTSD, ADHD, anxiety, depression, opioid use disorder, personality disorder, who was transferred from inpatient Psychiatry because of prolonged QTC.? History is from patient and from electronic medical records. Patient was admitted to inpatient Psychiatry here on 10/11/2020, where she was treated for mood lability, irritability and agitation requiring restraints.? She was being treated by Psychiatry, but unfortunately yesterday (10/19/20) she received a double dose of her home medication methadone.? An EKG was performed, and her QTC was found to be elevated at 681. Subsequently, Cardiology was consulted, and it was recommended that the patient be transferred to telemetry floor, and monitor overnight, with Cardiology consult. Hospital course Patient admitted due to abnormal QT interval noted on EKG, patient admitted to telemetry unit overnight noted to have normal electrolytes and magnesium level a repeat EKG this morning showed normal QTC, patient evaluated by medical records analyst Dr. Mackay he recommended to resume methadone, patient can resume her home medications including doxepin since her prior EKG showed normal QTC, in future if other QT prolonging medications had to be started for her psychiatric condition then a follow-up EKG needs to be obtained to make sure the QTC is less than 500 millisecond prior to escalating or adding more medications. Time Spent with Patient Time attestation: Total time spent providing and/or coordinating discharge servi og: Discharge coordination time: Greater than 30 minutes Quality: Stroke Does the patient have a stroke diagnosis?: No Physical Exam Vital Signs: Vital Signs: Last Vital Signs Temp 97.6 F 10/20/20 14:59 Pulse 74 10/20/20 14:59 Resp 18 10/20/20 14:59 BP 96/48 L 10/20/20 15:02 Pulse Ox 94 10/20/20 14:59 General no acute distress. Neck supple no JVD. CVS regular rate rhythm, Respiratory lungs clear to auscultation, no respiratory distress, no wheeze, no rhonchi. Gastrointestinal abdomen soft, nontender, bowel sounds audible Extremities no edema. Neuro nonfocal Skin no rash DS: Data Data Completed and Pending Labs on day of discharge: Laboratory Results - last 24 hr 10/20/20 10/20/20 08:21 08:21 WBC 9.3 RBC 3.87 L Hgb 11.3 L Hct 34.1 L MCV 88.1 MCH 29.2 MCHC 33.1 RDW 13.8 Plt Count 351 MPV 9.5 Immature Gran % (Auto) 3.0 H Neut % (Auto) 58.3 Lymph % (Auto) 25.1 [place] % (Auto) 8.3 Eos % (Auto) 4.9 H Baso % (Auto) 0.4 Lymph # (Auto) 2.3 [place] # (Auto) 0.8 Eos # (Auto) 0.5 H Baso # (Auto) 0.0 Abs Immat Gran (auto) 0.28 H Absolute Neuts (auto) 5.4 Absolute Nucleated RBC 0.000 Nucleated RBC % (auto) 0.0 Sodium 140 Potassium 4.4 Chloride 106 Carbon Dioxide 28 Anion Gap 10 L BUN 15 Creatinine 0.69 Estim Creat Clear Calc TNP Estimated GFR > 60 Random Glucose 83 Calcium 9.9 Discharge Plan Discharge Disposition: Xfer Psychiatric Hosp Referrals: Physician,Unknown [Primary Care Provider] - 1 Week Discharge Medications: Discontinued olanzapine 10 mg Tablet 10 mg PO BID PRN (Reason: Anxiety) RF: 0 lithium carbonate 600 mg Capsule 600 mg PO BID RF: 0 dextroamphetamine-amphetamine [Adderall XR] 10 mg capsule,extended release 24hr 1 cap PO QAM RF: 0 gabapentin 800 mg PO TID RF: 0 clonidine 0.2 mg PO BEDTIME RF: 0 doxepin 150 mg BEDTIME RF: 0 methadone 10 mg/mL Concentrate 100 mg PO DAILY RF: 0 nitrofurantoin monohyd/m-cryst [Macrobid] 100 mg capsule 100 mg PO Q12H 5 Days Qty: 10 RF: 0 Discharge Orders: Discharge Order (Routine); Ordered 10/20/20 Ordered By: Christina Uriarte Forms: Patient Portal Discharge page Care Plan Goals: Prolonged QTC admitted to [facility] [place], no arrhythmia noted repeat EKG showed normalization of QTC. Health Concerns: Continue all psychiatric medications as per Psychiatry. Plan of Treatment: Follow-up with Psychiatry and resume medications as before, avoid medications t hat prolong QTC, check EKG if any medication is of concern To increase QTC level.
[2020-10-20 16:03] LABS: Anion Gap 14 (12-20); Blood Urea Nitrogen 14 mg/dL (9-16); Calcium 9.7 mg/dL (8.4-10.2); Carbon Dioxide 27 mmol/L (22-29); Chloride 104 mmol/L (96-108); Estimated Glomerular Filt Rate > 60; Glucose Random 97 mg/dL (60-115); Potassium 4.5 mmol/L (3.3-5.1); Sodium 140 mmol/L (135-145)
[2020-10-20] MEDS: gemfibroziL 600 MG TABLET PO (16:32)
[2020-10-20] MEDS: 0.9 % Sodium Chloride Flush 3 ML SYRINGE IVFLUSH (16:33)
== END 2020-10-20 18:41 ==
PROVIDERS: Admitting Provider Internal Medicine; Visit Provider Hospitalist
DX: I45.81 Long QT syndrome (principal); T40.3X1A Poisoning by methadone, accidental (unintentional), initial encounter; Y92.230 Patient room in hospital as the place of occurrence of the external cause; B19.20 Unspecified viral hepatitis C without hepatic coma; F90.2 Attention-deficit hyperactivity disorder, combined type; F41.8 Other specified anxiety disorders; F43.10 Post-traumatic stress disorder, unspecified; F32.9 Major depressive disorder, single episode, unspecified; F11.20 Opioid dependence, uncomplicated; F17.210 Nicotine dependence, cigarettes, uncomplicated; Z79.899 Other long term (current) drug therapy
CPT/HCPCS: 36415; 80048; 85025; 93005; 99219; 99220

== ENCOUNTER 2020-10-20 15:21 | Inpatient (IN) | payer OTHER, SELFPAY ==
[2020-10-20 18:50] VITALS: BMI 25.4
--- NOTE | 2020-10-20 19:33 | PC.ADMIT ---
Pt is a 35 year old female that was admitted to [facility] for elevated QTC wave monitoring now continuing treatment. Originally came into [facility] for SI and increased depression. Per eval she reported that she had been sober for 8 months and that it has been difficult to remain sober because of memories and flashbacks. Denied HI and AVH. Denies any pain. Reports that she is safe on the unit. Can be loud and intrusive at times. In behavioral control. Placed on 15 minute checks. CV signed.
[2020-10-20] MEDS: Lithium Carbonate 300 MG CAPSULE 600 MG PO (20:21)
[2020-10-20 20:22] VITALS: BP 126/57; PULSE 93
[2020-10-20] MEDS: cloNIDine HCL 0.2 MG TABLET PO (20:22)
[2020-10-20] MEDS: HaloperidoL 5 MG TABLET 10 MG PO (20:22)
[2020-10-20] MEDS: Gabapentin 400 MG CAPSULE PO (20:24)
[2020-10-20] MEDS: Doxepin HCl 25 MG CAPSULE 100 MG PO (20:24)
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
[2020-10-21] MEDS: methADONE HCl 20 MG/2 ML ORAL.CONC 100 MG PO (08:28)
[2020-10-21] MEDS: gemfibroziL 600 MG TABLET PO ×2 (08:29→16:36)
[2020-10-21] MEDS: Lithium Carbonate 300 MG CAPSULE 600 MG PO ×2 (08:30→19:39)
[2020-10-21] MEDS: Gabapentin 400 MG CAPSULE PO ×3 (08:30→19:39)
[2020-10-21] MEDS: HaloperidoL 5 MG TABLET 10 MG PO ×2 (08:30→19:39)
[2020-10-21] MEDS: Cholecalciferol (Vitamin D3) 10 MCG TABLET PO (08:31)
[2020-10-21] MEDS: clonazePAM 1 MG TABLET PO ×2 (08:31→19:39)
[2020-10-21] MEDS: Multivitamin TABLET 1 TAB PO (10:24)
[2020-10-21 16:14] VITALS: BP 127/73; PULSE 97; TEMP 36.7
--- NOTE | 2020-10-21 16:17 | HO.PSYCHPN ---
Subjective Subjective Date of Service: 10/21/20 Reason For Visit: Depression Subjective Notes: Conditional Voluntary Medical Problems Affecting Mental Status: Yes Interim History: recent double dose of methadone with QTC above 500. 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 c/o dizziness, headache GI: No c/o Nausea, Vomiting, diarrhea, constipation or heartburn Constitutional: Reports as per [facility] Mental Status Exam Mental Status Exam Patient Appearance: Appropriate Level of Consciousness: Sedated Patient Behavior: Appropriate and Invasion - Personal Space Mood Description: Labile Affect Description: Blunted Patient Cognition Impaired: No Ability to Follow Directions: Fair Speech Pattern: Impoverished Memory Description: Intact Hallucinations: None Delusions: Not Present Thought Process: Intact (treatment focused) Thought Content: positive for Intact Judgement: Poor Diagnostics Vital Signs (24Hr): Vital Signs - 24 hr 10/20/20 20:22 10/21/20 16:14 Temperature 98.1 F Pulse Rate 93 97 Blood Pressure 126/57 L 127/73 Body Mass Index 25.4 EKG EKG Comment: QTC on 10/20 380 Medications Medications Current Medications Generic Name Dose Route Start Last Admin Trade Name Justin PRN Reason Stop Dose Admin Acetaminophen 650 mg 10/20/20 19:20 Acetaminophen 325 Mg Tablet PO Q6H PRN Pain, Mild (Pain Scale 1-3) Al Hydroxide/Mg Hydroxide 30 ml 10/20/20 19:20 Magnesium Hydrox/Alum Hydrox 30 Ml Oral.Susp PO Q6H PRN Heartburn/Nausea Amphetamine/Dextroamphetamine 30 mg 10/21/20 09:00 10/21/20 08:29 Dextroamphetami/Amphetamine Xr 10 Mg Cap.Er.24h PO 30 mg DAILY BARAK Administration Clonazepam 1 mg 10/21/20 09:00 10/21/20 08:31 Clonazepam 1 Mg Tablet PO 1 mg BID BARAK Administration Clonazepam 1 mg 10/21/20 16:14 Clonazepam 1 Mg Tablet PO DAILY PRN anxiety/restlessness Clonidine HCl 0.2 mg 10/20/20 21:00 10/20/20 20:22 Clonidine Hcl 0.2 Mg Tablet PO 0.2 mg BEDTIME BARAK Administration Protocol Doxepin HCl 100 mg 10/20/20 21:00 10/20/20 20:24 Doxepin Hcl 25 Mg Capsule PO 100 mg BEDTIME BARAK Administration Gabapentin 400 mg 10/20/20 21:00 10/21/20 14:47 Gabapentin 400 Mg Capsule PO 400 mg TID BARAK Administration Gemfibrozil 600 mg 10/21/20 07:30 10/21/20 08:29 Gemfibrozil 600 Mg Tablet PO 600 mg BIDAC BARAK Administration Haloperidol 10 mg 10/20/20 21:00 10/21/20 08:30 Haloperidol 5 Mg Tablet PO 10 mg BID BARAK Administration [place] Carbonate 600 mg 10/20/20 21:00 10/21/20 08:30 [place] Carbonate 300 Mg Capsule PO 600 mg BID BARAK Administration Magnesium Hydroxide 30 ml 10/20/20 19:20 Milk Of Magnesia 30 Ml Oral.Susp PO DAILY PRN Constipation Methadone HCl 100 mg 10/21/20 09:00 10/21/20 08:28 Methadone Hcl 20 Mg/2 Ml Oral.Conc PO 100 mg DAILY BARAK Administration Multivitamins 1 tab 10/21/20 09:00 10/21/20 08:31 B-Complex With Vitamin C Tablet PO 1 tab DAILY BARAK Administration Multivitamins/Vitamin C 1 tab 10/21/20 09:00 10/21/20 10:24 Multivitamin Tablet PO 1 tab DAILY BARAK Administration Nicotine 21 mg 10/20/20 19:31 Nicotine 21 Mg Patch.Td24 TRANSDERMA DAILY PRN Smoking cessation Nicotine Polacrilex 4 mg 10/20/20 19:20 Nicotine Polacrilex 2 Mg Gum BUCCAL Q1H PRN Nicotine Cravings Olanzapine 10 mg 10/20/20 19:06 Olanzapine 10 Mg Tablet PO BID PRN psychosis, agitation Vitamin D 10 mcg 10/21/20 09:00 10/21/20 08:31 Cholecalciferol (Vitamin D3) 10 Mcg Tablet PO 10 mcg DAILY BARAK Administration Allergies Allergies Allergy/AdvReac Type Severity Reaction Status Date / Time No Known Allergies Allergy Verified 10/07/20 20:14 Assessment & Plan Assessment & Plan (1) PTSD (post-traumatic stress disorder): Status: Acute Code(s): F43.10 - Post-traumatic stress disorder, unspecified (2) Opioid use disorder, moderate, on maintenance therapy, dependence: Status: Acute Code(s): F11.20 - Opioid dependence, uncomplicated (3) Suicidal ideation: Status: Acute Code(s): R45.851 - Suicidal ideations Assessment and Plan: 35 yo female, hx of bipolar disorder, ptsd, adhd, personality disorder and addiction (sober for eight months and using Methadone, [facility] OpCp) presented to ER with SI and mood lability, irritability and agitation requiring restraint. Precipitants are unclear-pt reported feeling overwhelmed with symptoms of PTSD and unable to manage these. Lives in [facility] and has outpatient services. 10/20 EKG showed QT has shortened, QTc is 348 10/20 Labs showed CBC wnl except WBC L 3.87, Hgb/ Hct L 11.3/34.1. CMP wnl,? Continue with Plan: 1. Re-start inpatient psychotropic medication regime, cleared to take QTc prolonging medications by cardiology. Will repeat EKG if doses increased or new medication added. 2. Continue methadone maintenance dose of 100 mg, cleared to do so by cardiology 3. continue clonazepam at 1 mg BID and add 0.5 mg qd prn for break through anxiety 4. Monitor response to medications. Monitor for safety in the milieu. Discharge on stabilization. Patient seen. Chart reviewed. Discussed with team.? Greater than 50% of the session was spent on counseling and/or coordination of care Reason for contiued inpatient stay Substantial Risk for: inability to function, rapid decompensation and med/psych decompensation
[2020-10-21] MEDS: clonazePAM 0.5 MG TABLET PO (16:36)
[2020-10-21] MEDS: Doxepin HCl 25 MG CAPSULE 100 MG PO (19:39)
[2020-10-21 19:40] VITALS: BP 138/84; PULSE 98
[2020-10-21] MEDS: cloNIDine HCL 0.2 MG TABLET PO (19:40)
[2020-10-22 06:00] VITALS: BP 104/59; PULSE 75; TEMP 36.1; O2SAT 95
[2020-10-22] MEDS: Nicotine Polacrilex 2 MG GUM 4 MG BUCCAL (06:30)
[2020-10-22] MEDS: methADONE HCl 20 MG/2 ML ORAL.CONC 100 MG PO (08:44)
[2020-10-22] MEDS: Cholecalciferol (Vitamin D3) 10 MCG TABLET PO (08:48)
[2020-10-22] MEDS: Multivitamin TABLET 1 TAB PO (08:48)
[2020-10-22] MEDS: gemfibroziL 600 MG TABLET PO ×2 (08:48→16:53)
[2020-10-22] MEDS: Gabapentin 400 MG CAPSULE PO ×3 (08:48→20:17)
[2020-10-22] MEDS: clonazePAM 1 MG TABLET PO ×3 (08:49→20:17)
[2020-10-22] MEDS: Lithium Carbonate 300 MG CAPSULE 600 MG PO ×2 (08:49→20:17)
[2020-10-22] MEDS: HaloperidoL 5 MG TABLET 10 MG PO ×2 (08:50→20:17)
--- NOTE | 2020-10-22 10:55 | HO.PSYCHPN ---
Subjective Subjective Date of Service: 10/22/20 Reason For Visit: Depression Subjective Notes: Conditional Voluntary Medical Problems Affecting Mental Status: No Interim History: recent double dose of methadone with QTC above 500. 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 Well groomed, fair hygiene, overweight. Good eye contact, attentive. No Tics or Tremors. No abnormal involuntary movements. Anxious, cooperative, engaged. No pressured speech. Mood is ?good,? affect is euthymic. Denies SI/SIB/HI upon inquiry. Denies A/VH or delusional thought content. Thoughts are coherent, organized. No known cognitive or memory impairment. Insight/ Judgment fair and adequate. Patient Appearance: Appropriate Patient Behavior: Appropriate and Invasion - Personal Space Mood Description: Labile Affect Description: Blunted Patient Cognition Impaired: No Ability to Follow Directions: Fair Speech Pattern: Impoverished Memory Description: Intact Judgement: Fair Judgement and Insight: fair-poor judgment Diagnostics Vital Signs (24Hr): Vital Signs - 24 hr 10/21/20 16:14 10/21/20 19:40 10/22/20 06:00 Temperature 98.1 F 96.9 F Pulse Rate 97 98 75 Blood Pressure 127/73 138/84 104/59 L Pulse Oximetry 95 Body Mass Index 25.4 EKG EKG Comment: ordered for 10/23/20 Medications Medications Current Medications Generic Name Dose Route Start Last Admin Trade Name Freq PRN Reason Stop Dose Admin Acetaminophen 650 mg 10/20/20 19:20 Acetaminophen 325 Mg Tablet PO Q6H PRN Pain, Mild (Pain Scale 1-3) Al Hydroxide/Mg Hydroxide 30 ml 10/20/20 19:20 Magnesium Hydrox/Alum Hydrox 30 Ml Oral.Susp PO Q6H PRN Heartburn/Nausea Amphetamine/Dextroamphetamine 30 mg 10/21/20 09:00 10/22/20 08:49 Dextroamphetami/Amphetamine Xr 10 Mg Cap.Er.24h PO 30 mg DAILY BARAK Administration Clonazepam 1 mg 10/21/20 09:00 10/22/20 08:49 Clonazepam 1 Mg Tablet PO 1 mg BID BARAK Administration Clonazepam 1 mg 10/22/20 10:54 Clonazepam 1 Mg Tablet PO DAILY PRN anxiety/restlessness Clonidine HCl 0.2 mg 10/20/20 21:00 10/21/20 19:40 Clonidine Hcl 0.2 Mg Tablet PO 0.2 mg BEDTIME BARAK Administration Protocol Doxepin HCl 100 mg 10/20/20 21:00 10/21/20 19:39 Doxepin Hcl 25 Mg Capsule PO 100 mg BEDTIME BARAK Administration Gabapentin 400 mg 10/20/20 21:00 10/22/20 08:48 Gabapentin 400 Mg Capsule PO 400 mg TID BARAK Administration Gemfibrozil 600 mg 10/21/20 07:30 10/22/20 08:48 Gemfibrozil 600 Mg Tablet PO 600 mg BIDAC BARAK Administration Haloperidol 10 mg 10/20/20 21:00 10/22/20 08:50 Haloperidol 5 Mg Tablet PO 10 mg BID BARAK Administration [place] Carbonate 600 mg 10/20/20 21:00 10/22/20 08:49 [place] Carbonate 300 Mg Capsule PO 600 mg BID BARAK Administration Magnesium Hydroxide 30 ml 10/20/20 19:20 Milk Of Magnesia 30 Ml Oral.Susp PO DAILY PRN Constipation Methadone HCl 100 mg 10/21/20 09:00 10/22/20 08:44 Methadone Hcl 20 Mg/2 Ml Oral.Conc PO 100 mg DAILY BARAK Administration Multivitamins 1 tab 10/21/20 09:00 10/22/20 08:48 B-Complex With Vitamin C Tablet PO 1 tab DAILY BARAK Administration Multivitamins/Vitamin C 1 tab 10/21/20 09:00 10/22/20 08:48 Multivitamin Tablet PO 1 tab DAILY BARAK Administration Nicotine 21 mg 10/20/20 19:31 Nicotine 21 Mg Patch.Td24 TRANSDERMA DAILY PRN Smoking cessation Nicotine Polacrilex 4 mg 10/20/20 19:20 10/22/20 06:30 Nicotine Polacrilex 2 Mg Gum BUCCAL 4 mg Q1H PRN Administration Nicotine Cravings Olanzapine 10 mg 10/20/20 19:06 Olanzapine 10 Mg Tablet PO BID PRN psychosis, agitation Vitamin D 10 mcg 10/21/20 09:00 10/22/20 08:48 Cholecalciferol (Vitamin D3) 10 Mcg Tablet PO 10 mcg DAILY BARAK Administration Allergies Allergies Allergy/AdvReac Type Severity Reaction Status Date / Time No Known Allergies Allergy Verified 10/07/20 20:14 Assessment & Plan Assessment & Plan (1) PTSD (post-traumatic stress disorder): Status: Acute Code(s): F43.10 - Post-traumatic stress disorder, unspecified (2) Opioid use disorder, moderate, on maintenance therapy, dependence: Status: Acute Code(s): F11.20 - Opioid dependence, uncomplicated (3) Suicidal ideation: Status: Acute Code(s): R45.851 - Suicidal ideations Assessment and Plan: 35 yo female, hx of bipolar disorder, ptsd, adhd, personality disorder and addiction (sober for eight months and using Methadone, Habit OpCp) presented to ER with SI and mood lability, irritability and agitation requiring restraint. Precipitants are unclear-pt reported feeling overwhelmed with symptoms of PTSD and unable to manage these. Lives in [facility] and has outpatient services. 10/20 EKG showed QT has shortened, QTc is 348 10/20 Labs showed CBC wnl except WBC L 3.87, Hgb/ Hct L 11.3/34.1. CMP wnl,? Continue with Plan: recheck QTC 10/23/20 2. Re-start inpatient psychotropic medication regime, cleared to take QTc prolonging medications by cardiology. Will repeat EKG if doses increased or new medication added. 3. Continue methadone maintenance dose of 100 mg, cleared to do so by cardiology 4. continue clonazepam at 1 mg BID and add 0.5 mg qd prn for break through anxiety 5. Monitor response to medications. 6. Monitor for safety in the milieu. 7. Discharge on stabilization. Greater than 50% of the session was spent on counseling and/or coordination of care Reason for contiued inpatient stay Substantial Risk for: harm to self, inability to function, rapid decompensation and med/psych decompensation
[2020-10-22] MEDS: Nicotine 21 MG PATCH.TD24 TRANSDERMA (14:29)
[2020-10-22 16:05] VITALS: BP 110/60; PULSE 80; TEMP 36.6
[2020-10-22] MEDS: cloNIDine HCL 0.2 MG TABLET PO (20:16)
[2020-10-22] MEDS: Doxepin HCl 25 MG CAPSULE 100 MG PO (20:17)
[2020-10-22] MEDS: OLANZapine 10 MG TABLET PO (22:42)
[2020-10-23 06:00] VITALS: BP 113/70; PULSE 74; RESP 16; TEMP 35.8; O2SAT 95
--- NOTE | 2020-10-23 08:00 | ECG_ITS ---
Test Reason : QTC [facility] Blood Pressure : / mmHG Vent. Rate : 079 BPM Atrial Rate : 079 BPM P-R Int : 208 ms QRS Dur : 082 ms QT Int : 400 ms P-R-T Axes : 060 036 050 degrees QTc Int : 458 ms Normal sinus rhythm Nonspecific T wave abnormality Abnormal ECG When compared with ECG of 20-OCT-2020 15:49, QT has lengthened Referred By: Adriana Hutchins Electronically Signed By:ROSA LOPEZ
[2020-10-23] MEDS: methADONE HCl 20 MG/2 ML ORAL.CONC 100 MG PO (08:18)
[2020-10-23] MEDS: clonazePAM 1 MG TABLET PO ×3 (08:19→20:01)
[2020-10-23] MEDS: HaloperidoL 5 MG TABLET 10 MG PO ×2 (08:19→20:01)
[2020-10-23] MEDS: Cholecalciferol (Vitamin D3) 10 MCG TABLET PO (08:19)
[2020-10-23] MEDS: gemfibroziL 600 MG TABLET PO ×2 (08:19→16:17)
[2020-10-23] MEDS: Multivitamin TABLET 1 TAB PO (08:19)
[2020-10-23] MEDS: Gabapentin 400 MG CAPSULE PO ×3 (08:19→20:02)
[2020-10-23] MEDS: Lithium Carbonate 300 MG CAPSULE 600 MG PO ×2 (08:19→20:02)
--- NOTE | 2020-10-23 12:26 | P.PNPSI_ITS ---
Subjective Subjective Date of Service: 10/23/20 Reason For Visit: Depression Subjective Notes: Conditional Voluntary Healthcare Proxy: No Guardianship: No Medical Problems Affecting Mental Status: No Interim History: Pt reports feeling improved. Team reports over the weekend she exhibited periods of sedation, periods where she had poor physical boundaries which were inappropriate and provocative antisocial behaviors. Pt was quoted to have encouraged another patient to continue her attempts to strike others. Met with pt to address these issues along with her added Methadone dosing on 10/19. Pt denies encouraging another patient to strike others-she reflects upon her own trauma and PTSD issues and states that she would never do this-repeated her quotes from team report and she continues to deny but will discuss with team as well. Discussed provocative behaviors in milieu over the weekend-she reports no harm by this, just being friendly . Review of methadone dosing issue on 10/19, wh ere pt took two doses and states she was aware of this. She did not share with team until later in the day and had questions as to why we had ordered diagnostics and telemetry transfer. Re-reviewed concerns for taking two doses of methadone-pt reports she has taken greater than this dose by history and believes care was not needed, although she expressed appreciation. Indicators and results reviewed with pt along with EKG initial changes and cardiology input recommending telemetry monitoring. Pt verbalized appreciation for medical care by telemetry team. Discussed thinking about not going to [facility], but returning home to mother's home and getting an apartment. Discussed with pt the medicine seeking behaviors observed during this admission and her need for programatic structure and support. Encouraged her to continue with her original plan of care. She will consider. Medication Compliance: Yes Side effects from medications: No Attending Groups: Intermittent Review of Systems Acute medical concerns: No Medical Review of Systems: unchanged Diagnostics Vital Signs (24Hr): Vital Signs - 24 hr 10/22/20 16:05 10/23/20 06:00 Temperature 97.9 F 96.4 F L Pulse Rate 80 74 Respiratory Rate 16 Blood Pressure 110/60 113/70 Pulse Oximetry 95 Body Mass Index 25.4 EKG EKG: reviewed EKG Comment: QT 400 QTc 453 Medications Medications Current Medications Generic Name Dose Route Start Last Admin Trade Name Freq PRN Reason Stop Dose Admin Acetaminophen 650 mg 10/20/20 19:20 Acetaminophen 325 Mg Tablet PO Q6H PRN Pain, Mild (Pain Scale 1-3) Al Hydroxide/Mg Hydroxide 30 ml 10/20/20 19:20 Magnesium Hydrox/Alum Hydrox 30 Ml Oral.Susp PO Q6H PRN Heartburn/Nausea Amphetamine/Dextroamphetamine 30 mg 10/21/20 09:00 10/23/20 08:19 Dextroamphetami/Amphetamine Xr 10 Mg Cap.Er.24h PO 30 mg DAILY BARAK Administration Clonazepam 1 mg 10/21/20 09:00 10/23/20 08:19 Clonazepam 1 Mg Tablet PO 1 mg BID BARAK Administration Clonazepam 1 mg 10/22/20 10:54 10/22/20 14:42 Clonazepam 1 Mg Tablet PO 1 mg DAILY PRN Administration anxiety/restlessness Clonidine HCl 0.2 mg 10/20/20 21:00 10/22/20 20:16 Clonidine Hcl 0.2 Mg Tablet PO 0.2 mg BEDTIME BARAK Administration Protocol Doxepin HCl 100 mg 10/20/20 21:00 10/22/20 20:17 Doxepin Hcl 25 Mg Capsule PO 100 mg BEDTIME BARAK Administration Gabapentin 400 mg 10/20/20 21:00 10/23/20 08:19 Gabapentin 400 Mg Capsule PO 400 mg TID BARAK Administration Gemfibrozil 600 mg 10/21/20 07:30 10/23/20 08:19 Gemfibrozil 600 Mg Tablet PO 600 mg BIDAC BARAK Administration Haloperidol 10 mg 10/20/20 21:00 10/23/20 08:19 Haloperidol 5 Mg Tablet PO 10 mg BID BARAK Administration [place] Carbonate 600 mg 10/20/20 21:00 10/23/20 08:19 [place] Carbonate 300 Mg Capsule PO 600 mg BID BARAK Administration Magnesium Hydroxide 30 ml 10/20/20 19:20 Milk Of Magnesia 30 Ml Oral.Susp PO DAILY PRN Constipation Methadone HCl 100 mg 10/21/20 09:00 10/23/20 08:18 Methadone Hcl 20 Mg/2 Ml Oral.Conc PO 100 mg DAILY BARAK Administration Multivitamins 1 tab 10/21/20 09:00 10/23/20 08:19 B-Complex With Vitamin C Tablet PO 1 tab DAILY BARAK Administration Multivitamins/Vitamin C 1 tab 10/21/20 09:00 10/23/20 08:19 Multivitamin Tablet PO 1 tab DAILY BARAK Administration Nicotine 21 mg 10/20/20 19:31 10/22/20 14:29 Nicotine 21 Mg Patch.Td24 TRANSDERMA 21 mg DAILY PRN Administration Smoking cessation Nicotine Polacrilex 4 mg 10/20/20 19:20 10/22/20 06:30 Nicotine Polacrilex 2 Mg Gum BUCCAL 4 mg Q1H PRN Administration Nicotine Cravings Olanzapine 10 mg 10/20/20 19:06 10/22/20 22:42 Olanzapine 10 Mg Tablet PO 10 mg BID PRN Administration psychosis, agitation Vitamin D 10 mcg 10/21/20 09:00 10/23/20 08:19 Cholecalciferol (Vitamin D3) 10 Mcg Tablet PO 10 mcg DAILY BARAK Administration Allergies Allergies Allergy/AdvReac Type Severity Reaction Status Date / Time No Known Allergies Allergy Verified 10/07/20 20:14 Assessment & Plan Assessment & Plan (1) PTSD (post-traumatic stress disorder): Status: Acute Code(s): F43.10 - Post-traumatic stress disorder, unspecified (2) Opioid use disorder, moderate, on maintenance therapy, dependence: Status: Acute Code(s): F11.20 - Opioid dependence, uncomplicated (3) Suicidal ideation: Status: Acute Code(s): R45.851 - Suicidal ideations Assessment and Plan: 35 yo female, hx of bipolar disorder, ptsd, adhd, personality disorder and addiction (sober for eight months and using Methadone, Habit OpCp) presented to ER with SI and mood lability, irritability and agitation requiring restraint. Precipitants are unclear-pt reported feeling overwhelmed with symptoms of PTSD and unable to manage these. Lives in [facility] and has outpatient services. 10/20 EKG showed QT has shortened, QTc is 348 10/20 Labs showed CBC wnl except WBC L 3.87, Hgb/ Hct L 11.3/34.1. CMP wnl,? 10/23 QT 400 QTc 453. Continue with current plan. Greater than 50% of the session was spent on counseling and/or coordination of care Reason for contiued inpatient stay Substantial Risk for: harm to self, inability to function and rapid decompensation
[2020-10-23] MEDS: Nicotine 21 MG PATCH.TD24 TRANSDERMA (13:14)
[2020-10-23 18:34] VITALS: BP 133/88; PULSE 104; TEMP 36.8
[2020-10-23 20:01] VITALS: BP 119/61; PULSE 95
[2020-10-23] MEDS: cloNIDine HCL 0.2 MG TABLET PO (20:01)
[2020-10-23] MEDS: Doxepin HCl 25 MG CAPSULE 100 MG PO (20:01)
[2020-10-23] MEDS: Nicotine Polacrilex 2 MG GUM 4 MG BUCCAL (23:59)
[2020-10-24] MEDS: methADONE HCl 20 MG/2 ML ORAL.CONC 100 MG PO (08:27)
[2020-10-24] MEDS: Multivitamin TABLET 1 TAB PO (08:31)
[2020-10-24] MEDS: gemfibroziL 600 MG TABLET PO ×2 (08:31→17:03)
[2020-10-24] MEDS: Gabapentin 400 MG CAPSULE PO ×3 (08:32→20:00)
[2020-10-24] MEDS: Cholecalciferol (Vitamin D3) 10 MCG TABLET PO (08:32)
[2020-10-24] MEDS: Lithium Carbonate 300 MG CAPSULE 600 MG PO ×2 (08:32→19:59)
[2020-10-24] MEDS: HaloperidoL 5 MG TABLET 10 MG PO ×2 (08:33→19:59)
[2020-10-24] MEDS: clonazePAM 1 MG TABLET PO ×3 (08:34→19:59)
[2020-10-24 11:31] VITALS: BP 114/63; PULSE 86
[2020-10-24] MEDS: cloNIDine HCL 0.1 MG TABLET PO (11:31)
[2020-10-24] MEDS: Nicotine 21 MG PATCH.TD24 TRANSDERMA (11:34)
--- NOTE | 2020-10-24 16:14 | PM.EVENT ---
Event Note Date of Service: 10/24/20 Event Note: Addiction note: Contacted provider regarding consult. Per provider, consult no longer necessary as patient will be discharging.
[2020-10-24 18:00] VITALS: BP 129/83; PULSE 92; TEMP 36.6
[2020-10-24] MEDS: Doxepin HCl 25 MG CAPSULE 100 MG PO (19:59)
[2020-10-24 20:00] VITALS: BP 129/83; PULSE 92
[2020-10-24] MEDS: cloNIDine HCL 0.2 MG TABLET PO (20:00)
--- NOTE | 2020-10-24 20:27 | P.PNPSI_ITS ---
Subjective Subjective Date of Service: 10/24/20 Reason For Visit: Depression Subjective Notes: Conditional Voluntary Healthcare Proxy: No Guardianship: No Medical Problems Affecting Mental Status: No Interim History: Pt reports feeling improved. She is alert, oriented, participative in conversation. She is wanting to return to [facility] and to go to [facility] recommended program prior to her return (TSS). Denies medication SE. Discussed titration of ADHD medication. Pt feeling improved on tapering of other meds during this hospitalization. Review of med timing as well and follow up diagnostics which are all within normal parameters. Pt states I really do feel good. Medication Compliance: Yes Side effects from medications: No Attending Groups: Yes Review of Systems Acute medical concerns: No Medical Review of Systems: unchanged Review of Systems Psychiatric: Reports no additional psychiatric complaints Mental Status Exam Mental Status Exam Patient Appearance: Appropriate Patient Orientation: Person, Place, Time and Situation Level of Consciousness: Alert Patient Behavior: Talkative, Cooperative and Good Eye Contact Mood Description: Calm Affect Description: Calm Patient Cognition Impaired: No Ability to Follow Directions: Good Speech Pattern: Spontaneous Speech Memory Description: Episodic Impaired Hallucinations: None Delusions: Not Present Thought Process: Intact and Goal Oriented Thought Content: positive for Intact, positive for Goal Oriented and positive for Suicidal Ideation (denies) Depressive Symptoms: Low Self Esteem Judgement: Good Diagnostics Vital Signs (24Hr): Vital Signs - 24 hr 10/24/20 11:31 10/24/20 18:00 10/24/20 20:00 Temperature 97.9 F Pulse Rate 86 92 92 Blood Pressure 114/63 129/83 129/83 Body Mass Index 25.4 Medications Medications Current Medications Generic Name Dose Route Start Last Admin Trade Name Austenq PRN Reason Stop Dose Admin Acetaminophen 650 mg 10/20/20 19:20 Acetaminophen 325 Mg Tablet PO Q6H PRN Pain, Mild (Pain Scale 1-3) Al Hydroxide/Mg Hydroxide 30 ml 10/20/20 19:20 Magnesium Hydrox/Alum Hydrox 30 Ml Oral.Susp PO Q6H PRN Heartburn/Nausea Amphetamine/Dextroamphetamine 40 mg 10/25/20 09:00 Dextroamphetami/Amphetamine Xr 10 Mg Cap.Er.24h PO DAILY BARAK Clonazepam 1 mg 10/21/20 09:00 10/24/20 19:59 Clonazepam 1 Mg Tablet PO 1 mg BID BARAK Administration Clonazepam 1 mg 10/22/20 10:54 10/24/20 17:15 Clonazepam 1 Mg Tablet PO 1 mg DAILY PRN Administration anxiety/restlessness Clonidine HCl 0.2 mg 10/20/20 21:00 10/24/20 20:00 Clonidine Hcl 0.2 Mg Tablet PO 0.2 mg BEDTIME BARAK Administration Protocol Clonidine HCl 0.1 mg 10/24/20 11:00 10/24/20 11:31 Clonidine Hcl 0.1 Mg Tablet PO 0.1 mg DAILY BARAK Administration Protocol Doxepin HCl 100 mg 10/20/20 21:00 10/24/20 19:59 Doxepin Hcl 25 Mg Capsule PO 100 mg BEDTIME BARAK Administration Gabapentin 400 mg 10/20/20 21:00 10/24/20 20:00 Gabapentin 400 Mg Capsule PO 400 mg TID BARAK Administration Gemfibrozil 600 mg 10/21/20 07:30 10/24/20 17:03 Gemfibrozil 600 Mg Tablet PO 600 mg BIDAC BARAK Administration Haloperidol 10 mg 10/20/20 21:00 10/24/20 19:59 Haloperidol 5 Mg Tablet PO 10 mg BID BARAK Administration [place] Carbonate 600 mg 10/20/20 21:00 10/24/20 19:59 [place] Carbonate 300 Mg Capsule PO 600 mg BID BARAK Administration Magnesium Hydroxide 30 ml 10/20/20 19:20 Milk Of Magnesia 30 Ml Oral.Susp PO DAILY PRN Constipation Methadone HCl 100 mg 10/21/20 09:00 10/24/20 08:27 Methadone Hcl 20 Mg/2 Ml Oral.Conc PO 100 mg DAILY BARAK Administration Multivitamins 1 tab 10/21/20 09:00 10/24/20 08:32 B-Complex With Vitamin C Tablet PO 1 tab DAILY BARAK Administration Multivitamins/Vitamin C 1 tab 10/21/20 09:00 10/24/20 08:31 Multivitamin Tablet PO 1 tab DAILY BARAK Administration Nicotine 21 mg 10/20/20 19:31 10/24/20 11:34 Nicotine 21 Mg Patch.Td24 TRANSDERMA 21 mg DAILY PRN Administration Smoking cessation Nicotine Polacrilex 4 mg 10/20/20 19:20 10/23/20 23:59 Nicotine Polacrilex 2 Mg Gum BUCCAL 4 mg Q1H PRN Administration Nicotine Cravings Olanzapine 10 mg 10/20/20 19:06 10/22/20 22:42 Olanzapine 10 Mg Tablet PO 10 mg BID PRN Administration psychosis, agitation Vitamin D 10 mcg 10/21/20 09:00 10/24/20 08:32 Cholecalciferol (Vitamin D3) 10 Mcg Tablet PO 10 mcg DAILY BARAK Administration Allergies Allergies Allergy/AdvReac Type Severity Reaction Status Date / Time No Known Allergies Allergy Verified 10/07/20 20:14 Assessment & Plan Assessment & Plan (1) PTSD (post-traumatic stress disorder): Status: Acute Code(s): F43.10 - Post-traumatic stress disorder, unspecified (2) Opioid use disorder, moderate, on maintenance therapy, dependence: Status: Acute Code(s): F11.20 - Opioid dependence, uncomplicated (3) Suicidal ideation: Status: Acute Code(s): R45.851 - Suicidal ideations Assessment and Plan: 35 yo female, hx of bipolar disorder, ptsd, adhd, personality disorder and addiction (sober for eight months and using Methadone, [facility]) presented to ER with SI and mood lability, irritability and agitation requiring restraint. Precipitants are unclear-pt reported feeling overwhelmed with symptoms of PTSD and unable to manage these. Lives in [facility] and has outpatient services. 10/20 EKG showed QT has shortened, QTc is 348 10/20 Labs showed CBC wnl except WBC L 3.87, Hgb/ Hct L 11.3/34.1. CMP wnl,? 10/23 QT 400 QTc 453. Continue with current plan. 10/24/20 Continue current plan of care. Titration of Adderall to 40 mg daily (pre-hospitalization dose). Pt awaits admission to [facility]. Greater than 50% of the session was spent on counseling and/or coordination of care Patient educated on: medication risk/benefits and therapeutic strategies Informed Consent: understands Reason for contiued inpatient stay Substantial Risk for: stable for discharge and other (awaits program availability)
[2020-10-25 06:00] VITALS: BP 121/65; PULSE 85; RESP 16; TEMP 35.9; O2SAT 98
[2020-10-25 08:23] VITALS: BP 100/53; PULSE 78; RESP 18; TEMP 526.3; TEMP 979.4; O2SAT 95
[2020-10-25] MEDS: methADONE HCl 20 MG/2 ML ORAL.CONC 100 MG PO (08:25)
[2020-10-25] MEDS: gemfibroziL 600 MG TABLET PO ×2 (08:26→16:26)
[2020-10-25] MEDS: Gabapentin 400 MG CAPSULE PO ×3 (08:26→21:07)
[2020-10-25] MEDS: HaloperidoL 5 MG TABLET 10 MG PO ×2 (08:26→21:08)
[2020-10-25] MEDS: Multivitamin TABLET 1 TAB PO (08:26)
[2020-10-25 08:27] VITALS: BP 100/53; PULSE 78
[2020-10-25] MEDS: Lithium Carbonate 300 MG CAPSULE 600 MG PO ×2 (08:27→21:07)
[2020-10-25] MEDS: clonazePAM 1 MG TABLET PO ×3 (08:27→21:07)
[2020-10-25] MEDS: Cholecalciferol (Vitamin D3) 10 MCG TABLET PO (08:27)
[2020-10-25] MEDS: cloNIDine HCL 0.1 MG TABLET PO (08:27)
[2020-10-25] MEDS: OLANZapine 10 MG TABLET PO (15:22)
[2020-10-25 17:09] VITALS: BP 108/57; PULSE 81; RESP 18; TEMP 36.1; O2SAT 96
--- NOTE | 2020-10-25 17:53 | P.PNPSI_ITS ---
Subjective Subjective Date of Service: 10/25/20 Reason For Visit: Depression Subjective Notes: Conditional Voluntary Healthcare Proxy: No Guardianship: No Medical Problems Affecting Mental Status: Yes (Sx of bacterial vaginosis re ported. Pt reports a long hx of sx.) Interim History: Pt hopeful that she will be accepted into [facility] for 10/26. Continues with lability vs behavioral sx-some loudness, some yelling-responsive to team when redirected. Alert, reports she feels very good, not appearing over- sedated, however sedation with current methadone use can come on intermittently. Reports quality sleep, no sx of concern, prepared for discharge she reports. Medication Compliance: Yes Side effects from medications: No Attending Groups: Yes Review of Systems Acute medical concerns: No Medical Review of Systems: unchanged Review of Systems Reports behavioral changes Psychiatric: Reports anxiety, Reports behavioral changes and Reports mood swings Mental Status Exam Mental Status Exam Patient Appearance: Appropriate Patient Orientation: Person, Place, Time and Situation Level of Consciousness: Alert Patient Behavior: Talkative, Cooperative and Good Eye Contact Mood Description: Calm Affect Description: Calm Patient Cognition Impaired: No Ability to Follow Directions: Good Speech Pattern: Spontaneous Speech Memory Description: Episodic Impaired Hallucinations: None Delusions: Not Present Thought Process: Intact and Goal Oriented Thought Content: positive for Intact, positive for Goal Oriented and positive for Suicidal Ideation (denies) Depressive Symptoms: Low Self Esteem Judgement: Good Diagnostics Vital Signs (24Hr): Vital Signs - 24 hr 10/24/20 18:00 10/24/20 20:00 10/25/20 06:00 Temperature 97.9 F 96.6 F L Pulse Rate 92 92 85 Respiratory Rate 16 Blood Pressure 129/83 129/83 121/65 Pulse Oximetry 98 10/25/20 08:23 10/25/20 08:27 10/25/20 17:09 Temperature 979.4 F H 96.9 F Pulse Rate 78 78 81 Respiratory Rate 18 18 Blood Pressure 100/53 L 100/53 L 108/57 L Pulse Oximetry 95 96 Body Mass Index 25.4 Labs Results: 10/26/20 09:40 10/26/20 09:40 Medications Medications Current Medications Generic Name Dose Route Start Last Admin Trade Name Freq PRN Reason Stop Dose Admin Acetaminophen 650 mg 10/20/20 19:20 Acetaminophen 325 Mg Tablet PO Q6H PRN Pain, Mild (Pain Scale 1-3) Al Hydroxide/Mg Hydroxide 30 ml 10/20/20 19:20 Magnesium Hydrox/Alum Hydrox 30 Ml Oral.Susp PO Q6H PRN Heartburn/Nausea Amphetamine/Dextroamphetamine 40 mg 10/25/20 09:00 10/25/20 08:26 Dextroamphetami/Amphetamine Xr 10 Mg Cap.Er.24h PO 40 mg DAILY BARAK Administration Clindamycin HCl 300 mg 10/25/20 21:00 Clindamycin Hcl 300 Mg Capsule PO 11/02/20 08:00 BID BARAK Clonazepam 1 mg 10/21/20 09:00 10/25/20 08:27 Clonazepam 1 Mg Tablet PO 1 mg BID BARAK Administration Clonazepam 1 mg 10/22/20 10:54 10/25/20 11:03 Clonazepam 1 Mg Tablet PO 1 mg DAILY PRN Administration anxiety/restlessness Clonidine HCl 0.2 mg 10/20/20 21:00 10/24/20 20:00 Clonidine Hcl 0.2 Mg Tablet PO 0.2 mg BEDTIME BARAK Administration Protocol Clonidine HCl 0.1 mg 10/24/20 11:00 10/25/20 08:27 Clonidine Hcl 0.1 Mg Tablet PO 0.1 mg DAILY BARAK Administration Protocol Doxepin HCl 100 mg 10/20/20 21:00 10/24/20 19:59 Doxepin Hcl 25 Mg Capsule PO 100 mg BEDTIME BARAK Administration Gabapentin 400 mg 10/20/20 21:00 10/25/20 14:40 Gabapentin 400 Mg Capsule PO 400 mg TID BARAK Administration Gemfibrozil 600 mg 10/21/20 07:30 10/25/20 16:26 Gemfibrozil 600 Mg Tablet PO 600 mg BIDAC BARAK Administration Haloperidol 10 mg 10/20/20 21:00 10/25/20 08:26 Haloperidol 5 Mg Tablet PO 10 mg BID BARAK Administration [place] Carbonate 600 mg 10/20/20 21:00 10/25/20 08:27 [place] Carbonate 300 Mg Capsule PO 600 mg BID BARAK Administration Magnesium Hydroxide 30 ml 10/20/20 19:20 Milk Of Magnesia 30 Ml Oral.Susp PO DAILY PRN Constipation Methadone HCl 100 mg 10/21/20 09:00 10/25/20 08:25 Methadone Hcl 20 Mg/2 Ml Oral.Conc PO 100 mg DAILY BARAK Administration Multivitamins 1 tab 10/21/20 09:00 10/25/20 08:27 B-Complex With Vitamin C Tablet PO 1 tab DAILY BARAK Administration Multivitamins/Vitamin C 1 tab 10/21/20 09:00 10/25/20 08:26 Multivitamin Tablet PO 1 tab DAILY BARAK Administration Nicotine 21 mg 10/20/20 19:31 10/24/20 11:34 Nicotine 21 Mg Patch.Td24 TRANSDERMA 21 mg DAILY PRN Administration Smoking cessation Nicotine Polacrilex 4 mg 10/20/20 19:20 10/23/20 23:59 Nicotine Polacrilex 2 Mg Gum BUCCAL 4 mg Q1H PRN Administration Nicotine Cravings Olanzapine 10 mg 10/20/20 19:06 10/25/20 15:22 Olanzapine 10 Mg Tablet PO 10 mg BID PRN Administration psychosis, agitation Vitamin D 10 mcg 10/21/20 09:00 10/25/20 08:27 Cholecalciferol (Vitamin D3) 10 Mcg Tablet PO 10 mcg DAILY BARAK Administration Allergies Allergies Allergy/AdvReac Type Severity Reaction Status Date / Time No Known Allergies Allergy Verified 10/07/20 20:14 Assessment & Plan Assessment & Plan (1) PTSD (post-traumatic stress disorder): Status: Acute Code(s): F43.10 - Post-traumatic stress disorder, unspecified (2) Opioid use disorder, moderate, on maintenance therapy, dependence: Status: Acute Code(s): F11.20 - Opioid dependence, uncomplicated (3) Suicidal ideation: Status: Acute Code(s): R45.851 - Suicidal ideations Assessment and Plan: 35 yo female, hx of bipolar disorder, ptsd, adhd, personality disorder and addiction (sober for eight months and using Methadone, [facility]) presented to ER with SI and mood lability, irritability and agitation requiring restraint. Precipitants are unclear-pt reported feeling overwhelmed with symptoms of PTSD and unable to manage these. Lives in [facility] and has outpatient services. 10/20 EKG showed QT has shortened, QTc is 348 10/20 Labs showed CBC wnl except WBC L 3.87, Hgb/ Hct L 11.3/34.1. CMP wnl,? 10/23 QT 400 QTc 453. Continue with current plan. 10/24/20 Continue current plan of care. Titration of Adderall to 40 mg daily (pre-hospitalization dose). Pt awaits admission to [facility]. 10/25/20: Continue current regime. Clindamycin 300 mg bid for seven days. Pt awaiting transfer to [facility]. Greater than 50% of the session was spent on counseling and/or coordination of care Reason for contiued inpatient stay Substantial Risk for: harm to self, harm to others, inability to function and rapid decompensation
[2020-10-25] MEDS: Doxepin HCl 25 MG CAPSULE 100 MG PO (21:07)
[2020-10-25] MEDS: Clindamycin HCL 300 MG CAPSULE PO (21:07)
[2020-10-25 21:08] VITALS: BP 135/76; PULSE 77
[2020-10-25] MEDS: cloNIDine HCL 0.2 MG TABLET PO (21:08)
[2020-10-26 07:00] VITALS: BMI 33.8
[2020-10-26 08:05] VITALS: BP 123/71; PULSE 87
[2020-10-26] MEDS: methADONE HCl 20 MG/2 ML ORAL.CONC 100 MG PO (08:24)
[2020-10-26] MEDS: cloNIDine HCL 0.1 MG TABLET PO (08:25)
[2020-10-26] MEDS: Cholecalciferol (Vitamin D3) 10 MCG TABLET PO (08:25)
[2020-10-26] MEDS: HaloperidoL 5 MG TABLET 10 MG PO (08:25)
[2020-10-26] MEDS: Lithium Carbonate 300 MG CAPSULE 600 MG PO (08:25)
[2020-10-26] MEDS: clonazePAM 1 MG TABLET PO (08:25)
[2020-10-26] MEDS: gemfibroziL 600 MG TABLET PO (08:25)
[2020-10-26] MEDS: Clindamycin HCL 300 MG CAPSULE PO (08:25)
[2020-10-26] MEDS: Multivitamin TABLET 1 TAB PO (08:25)
[2020-10-26] MEDS: Gabapentin 400 MG CAPSULE PO (08:25)
[2020-10-26 09:50] LABS: Baso%MD 0.7 %; Eos%MD 6.4 %; Hematocrit 35.8 % (37-47); Hemoglobin 11.7 g/dl (12.0-16.0); IG%MD 2.3 %; Lymph%MD 33.1 %; Mean Corpuscular HGB Conc 32.7 g/dl (31.0-35.0); Mean Corpuscular Hemoglobin 28.7 pg (27.0-33.0); Mean Platelet Volume 9.5 fL (9.4-12.3); Mono%MD 5.9 %; Neut%MD 51.6 %; Platelet Count 386 X10*3/uL (160-400); Red Blood Count 4.07 X10*6/uL (4.20-5.50); Red Cell Distribution Width 13.3 % (11.0-16.0); White Blood Count 7.4 X10*3/uL (4.8-10.8)
[2020-10-26 10:13] LABS: Lithium 1.11 mmol/L (0.60-1.20)
[2020-10-26 10:23] LABS: Alanine Aminotransferase 37 U/L (0-31); Albumin Level 4.4 g/dL (3.5-5.0); Alkaline Phosphatase 100 U/L (39-117); Anion Gap 11 (12-20); Aspartate Amino Transferase 25 U/L (5-31); Bilirubin Total 0.6 mg/dL (0.0-1.0); Blood Urea Nitrogen 15 mg/dL (9-16); Carbon Dioxide 24 mmol/L (22-29); Chloride 107 mmol/L (96-108); Creatinine Clr Calc Pharmacy 99.2; Estimated Glomerular Filt Rate > 60; Glucose Random 164 mg/dL (60-115); Sodium 138 mmol/L (135-145); Total Protein 7.3 g/dL (6.5-8.0)
[2020-10-26 10:44] LABS: Thyroid Stimulating Hormone 2.46 uIU/mL (0.32-4.0)
[2020-10-26 12:31] LABS: Band Neutrophils Percent 4 % (3-5); Eosinophils Absolute Manual 0.2 X10*3/UL (0.0-0.8); Eosinophils Percent Manual 3 % (0-4); Lymphocytes Absolute Manual 2.3 X10*3/uL (0.6-4.8); Lymphocytes Percent Manual 31 % (20-40); Monocytes Absolute Manual 0.3 X10*3/uL (0.0-1.2); Monocytes Percent Manual 4 % (2-11); Neutrophils Absolute Manual 4.6 X10*3/uL (2.2-7.9); Neutrophils Percent Manual 58 % (45-73); Platelet Estimate NORMAL (NORMAL); Platelet Morphology Comment NORMAL
[2020-10-26 12:32] LABS: RBC Morphology NORMAL
--- NOTE | 2020-10-26 21:01 | P.DS_ITS ---
DS: Providers Provider Date of Service: 10/26/20 Date of admission: 10/20/20 15:21 Date of discharge: 10/26/20 Primary care physician: Unknown Physician Admitting clinician: Aria Parham Attending physician on admission: Ferny Martinez Consults: 10/23/20 10:26 Addiction Medicine Routine Consulting Provider: Lynne Shafer Reason for consultation: Methadone tapering, 130-100 mg thus far Has provider been notified: No Attending physician on discharge: Ferny Martinez Discharging clinician: Elmira Lozada DS: Diagnosis Discharge Diagnosis (1) PTSD (post-traumatic stress disorder): Status: Acute (2) Opioid use disorder, moderate, on maintenance therapy, dependence: Status: Acute (3) Suicidal ideation: Status: Resolved DS: Medications Discharge Medications Home Medications: Previous Rx's Medication Instructions Recorded B-complex with vitamin C 1 tab PO DAILY #30 tab 10/26/20 cholecalciferol (vitamin D3) 10 10 mcg PO DAILY #30 tab 10/26/20 mcg (400 unit) tablet (Vitamin D3) clindamycin HCl 300 mg capsule 300 mg PO BID #14 cap 10/26/20 clonazepam 1 mg tablet 1 mg PO DAILY PRN #7 tab 10/26/20 clonidine HCl 0.1 mg tablet 0.1 mg PO DAILY #30 tab 10/26/20 clonidine HCl 0.2 mg tablet 0.2 mg PO BEDTIME #30 tab 10/26/20 dextroamphetamine-amphetamine ER 40 mg PO DAILY #60 cap 10/26/20 20 mg 24hr capsule,extend release (Adderall XR) doxepin 25 mg capsule 100 mg PO BEDTIME #7 cap 10/26/20 gabapentin 400 mg capsule 400 mg PO TID #21 cap 10/26/20 haloperidol 5 mg tablet 10 mg PO BID #28 tab 10/26/20 lithium carbonate 300 mg capsule 600 mg PO BID #14 cap 10/26/20 multivitamin with folic acid 400 1 tab PO DAILY #30 tab 10/26/20 mcg tablet (Tab-A-Zheng) naloxone 4 mg/actuation nasal 4 mg INTRANASAL Q2M PRN #2 ea 10/26/20 spray (Narcan) nicotine (polacrilex) 2 mg gum 4 mg BUCCAL Q1H PRN #30 ea 10/26/20 nicotine 21 mg/24 hr daily 21 mg TRANSDERMAL DAILY PRN #30 ea 10/26/20 transdermal patch Mental Status Exam Mental Status Exam Patient Appearance: Appropriate Patient Orientation: Person, Place, Time and Situation Level of Consciousness: Alert Patient Behavior: Talkative, Cooperative and Good Eye Contact Mood Description: Calm Affect Description: Calm Patient Cognition Impaired: No Ability to Follow Directions: Good Speech Pattern: Spontaneous Speech Memory Description: Episodic Impaired Hallucinations: None Delusions: Not Present Thought Process: Intact and Goal Oriented Thought Content: positive for Intact, positive for Goal Oriented and positive for Suicidal Ideation (denies) Depressive Symptoms: Low Self Esteem Judgement: Good Data Data Completed and Pending Completed studies during hospitalization [Text1]: 10/26/20 10/26/20 10/26/20 09:40 09:40 09:40 WBC 7.4 RBC 4.07 L Hgb 11.7 L Hct 35.8 L MCV 88.0 MCH 28.7 MCHC 32.7 RDW 13.3 Plt Count 386 MPV 9.5 Absolute Nucleated RBC 0.000 Nucleated RBC % (auto) 0.0 Neutrophils % (Manual) 58 Band Neutrophils % 4 Lymphocytes % (Manual) 31 Monocytes % (Manual) 4 Eosinophils % (Manual) 3 Abs Neuts (Manual) 4.6 Lymphocytes # (Manual) 2.3 Monocytes # (Manual) 0.3 Eosinophils # (Manual) 0.2 Platelet Estimate NORMAL Plt Morphology Comment NORMAL RBC Morphology NORMAL Sodium 138 Potassium 4.0 Chloride 107 Carbon Dioxide 24 Anion Gap 11 L BUN 15 Creatinine 0.81 Estim Creat Clear Calc 99.2 Estimated GFR > 60 Random Glucose 164 H D Calcium 10.0 Total Bilirubin 0.6 AST 25 ALT 37 H Alkaline Phosphatase 100 Total Protein 7.3 Albumin 4.4 TSH 2.46 Sunburst 1.11 DS: Summary Hospital Course Hospital Course: Pt re-admitted from medicine s/p taking two methadone doses with QTc changes. Pt experienced no adverse effects and reported no side effects. We continued to work on medication tapering, her mood and behaviors within the milieu were stable and she continued with her plan of care to attend [place], prior to her return to the [facility]. Time spent discussing smoking cessation with patient: 3 to 10 minutes Status at Discharge Cognitive/behavioral status at discharge: Alert, oriented, non-suicidal, non- psychotic. Functional status at discharge: independent ambulation Overall status at discharge: patient is back to baseline Time Spent with Patient Time attestation: Total time spent providing and/or coordinating discharge servi og: 35 Time spent: Greater than 30 minutes Discharge Plan Discharge Anticipated Discharge Date/Time: 10/26/20 13:00 Patient Disposition: Xfer Inpatient Rehab Fac Discharge Diagnosis: PTSD Bipolar Disorder Opioid Use Disorder, Severe, on Methadone Maintenance Referrals: Kaitlin Dennis @ [facility]'s [facility] [Other] - 1 Week (can return to [facility] program after [facility] admission. Please call Kaitlin Dennis at discharge to get back into program @ [phone].) [facility] [Other] - 10/26/20 1:00 am (You will discharge to [facility] program prior to returning back to [facility].) [facility] [Other] - 11/03/20 10:00 am (Diagnostic intake appointment scheduled for 11/03/20 @ 10 AM telehealth with Natali ) [facility] [Other] - 11/17/20 12:00 pm (Psychiatric evaluation scheduled for 11/17/20 @ 1 PM telehealth with Lanie Saucedo) [facility] [Other] - 12/12/20 9:00 am (Medication appointment scheduled for 12/12/20 9 AM telehealth with Lanie Saucedo.) Physician,Unknown [Primary Care Provider] - 1 Week Discharge Medications: New clonidine HCl 0.1 mg Tablet 0.1 mg PO DAILY Qty: 30 RF: 0 haloperidol 5 mg Tablet 10 mg PO BID Qty: 28 RF: 4 clindamycin HCl 300 mg Capsule 300 mg PO BID Qty: 14 RF: 0 nicotine (polacrilex) 2 mg Gum 4 mg buccal Q1H PRN (Reason: Nicotine Cravings) Qty: 30 RF: 0 doxepin 25 mg Capsule 100 mg PO BEDTIME Qty: 7 RF: 4 gabapentin 400 mg Capsule 400 mg PO TID Qty: 21 RF: 4 clonazepam 1 mg Tablet 1 mg PO DAILY PRN (Reason: Anxiety/Restlessness) Qty: 7 RF: 4 clonidine HCl 0.2 mg Tablet 0.2 mg PO BEDTIME Qty: 30 RF: 0 lithium carbonate 300 mg Capsule 600 mg PO BID Qty: 14 RF: 4 nicotine 21 mg/24 hr Patch 24 Hour 21 mg transdermal DAILY PRN (Reason: Smoking cessation) Qty: 30 RF: 0 cholecalciferol (vitamin D3) [Vitamin D3] 10 mcg (400 unit) Tablet 10 mcg PO DAILY Qty: 30 RF: 0 B-complex with vitamin C Tablet 1 tab PO DAILY Qty: 30 RF: 0 multivitamin with folic acid [Tab-A-Zheng] 400 mcg Tablet 1 tab PO DAILY Qty: 30 RF: 0 Narcan 4 mg/actuation spray,non-aerosol 4 mg intranasal Q2M PRN (Reason: opioid overdose) Qty: 2 RF: 0 dextroamphetamine-amphetamine [Adderall XR] 20 mg capsule,extended release 24hr 40 mg PO DAILY Qty: 60 RF: 0 Discharge Orders: Discharge Order (Routine); Ordered 10/20/20 Ordered By: Aria Parham Diet: advance to usual diet Activity on Discharge: As tolerated Stand Alone Forms: Patient Portal Discharge page, Community Support Care Plan Goals: Mood Stabilization Sobriety Health Concerns: Bipolar Disorder PTSD Opiate Use Disorder-Methadone Maintenance Medication Seeking Behaviors Plan of Treatment: Attend scheduled appointments Take medications as directed Transfer to ongoing program-please follow your treatment plan Assessment: non-psychotic, non-suicidal, alert, agrees with her plan of care. Discharge Date/Time: 10/26/20 12:50
== END 2020-10-26 12:50 | DRG 755 ==
PROVIDERS: Admitting Provider Hospitalist; Visit Provider Clinical Nurse Specialist Psychiatric/Mental Health, Adult
DX: F43.10 Post-traumatic stress disorder, unspecified (principal); R45.851 Suicidal ideations; F11.20 Opioid dependence, uncomplicated; F31.9 Bipolar disorder, unspecified; F90.9 Attention-deficit hyperactivity disorder, unspecified type; Z79.899 Other long term (current) drug therapy
CPT/HCPCS: 36415; 80053; 80178; 84443; 85007; 85027; 93005